=== PATIENT | male | born 1985 | race Caucasian/White ===

== ENCOUNTER 2018-10-05 20:08 | Inpatient (IN) | payer MEDICAID ==
[~2018-10-05] VITALS: Ht 188 cm; Wt 212.7 kg
--- NOTE | 2018-10-05 11:55 | NUR ---
NURSE NOTES: Patient is transferred from ED via gurney and received report from HOLLY Arredondo. Put desk monitor on. Inventory check done. Patient is alert and oriented x4. Vital signs taken. O2Sat 95% on room air. Patient is able to walk with steady gait. Patient denies any pain/discomfort at this time. Call light placed in easy reach. Will continue plan of care. Addendum: 10/06/18 at 0032 by SANIA GARCIA RN Entry Time-->[id number]
[2018-10-05 20:08] VITALS: BP 118/63
--- NOTE | 2018-10-05 20:08 | NUR ---
ED Nurse Note: Pt was BIBA from home, c/o SOB and left leg pain 10/15. Pt is A/O X4, C/O nausea. HR 149 , Temp 102.1 F at this time, waiting for orders.
--- NOTE | 2018-10-05 20:28 | NUR ---
ED Nurse Note: Shaina collected and sent to Lab.
[2018-10-05] MEDS ORDERED: Cefepime HCl 2 GM in NS 110 ML IV SCH (20:30)
[2018-10-05] MEDS ORDERED: Vancomycin 1.5 GM in NS 275 ML IVPB ONE (20:30)
--- NOTE | 2018-10-05 20:40 | NUR ---
ED Nurse Note: Blood c/s and urine collected and sent to Lab.
--- NOTE | 2018-10-05 20:52 | NUR ---
ED Nurse Note: Vanco and NS given as ordered.
[2018-10-05 20:59] LABS: ANION GAP 11 mmol/L (5-15); BLOOD UREA NITROGEN 14 mg/dL (7-18); CALCIUM 9.4 MG/DL (8.5-10.1); CARBON DIOXIDE 26 MMOL/L (21-32); CHLORIDE 99 MMOL/L (98-107); CREATININE 1.4 MG/DL (0.55-1.30); SODIUM 136 MMOL/L (136-145)
[2018-10-05 21:12] LABS: ALANINE AMINOTRANSFERASE 49 U/L (12-78); ALBUMIN 3.6 G/DL (3.4-5.0); ALBUMIN/GLOBULIN RATIO 0.8 (1.0-2.7); ALKALINE PHOSPHATASE 76 U/L (46-116); ASPARTATE AMINO TRANSFERASE 23 U/L (15-37); BILIRUBIN,TOTAL 0.4 MG/DL (0.2-1.0); CKMB < 0.5 NG/ML (0.0-3.6); CREATINE KINASE 67 U/L (26-308); PHOSPHORUS 1.3 MG/DL (2.5-4.9)
--- NOTE | 2018-10-05 21:21 | Emergency Room Report ---
History of Present Illness General Chief Complaint: Dyspnea/Respdistress Source: Patient Present Illness HPI Patient is a 33-year-old male who presented after increased difficulty breathing and left lower extremity discomfort. Patient had noticed increased swelling and discomfort to his left leg. He had recently had a small lesion to his lower extremity which he had scratched and subsequently became red hot and swollen. He had gradual onset of symptoms of approximately 1 week. He reports having fever and chills. He also reports having some increased difficulty with breathing. He had increased nonproductive cough. He denies any prior past medical history other than prior infection to his right lower extremity. Allergies: Coded Allergies: No Known Allergies (Unverified , 10/05/18) Patient History Past Medical History: see triage record Reviewed Nursing Documentation: PMH: Agreed; PSxH: Agreed Nursing Documentation-PM Past Medical History: No Stated History Review of Systems All Other Systems: negative except mentioned in HPI Physical Exam Vital Signs Date Time Temp Pulse Resp B/P (MAP) Pulse Ox O2 Delivery O2 Flow Rate FiO2 10/05/18 19:56 99.1 140 22 123/64 (83) 98 Room Air Sp02 EP Interpretation: reviewed, normal General Appearance: normal inspection, alert, GCS 15, non-toxic, obese, Chronically Ill Head: atraumatic ENT: normal ENT inspection, hearing grossly normal, normal voice Neck: normal inspection, full range of motion, supple, no bony tend Respiratory: normal inspection, lungs clear, normal breath sounds, no respiratory distress, no retraction, no wheezing Cardiovascular #1: tachycardia, edema - left leg Gastrointestinal: normal inspection, normal bowel sounds, non tender, soft, no guarding, no hernia Genitourinary: no CVA tenderness Musculoskeletal: normal inspection, back normal, normal range of motion Neurologic: normal inspection, alert, oriented x3, responsive, chain carrier III-XII nml as tested, motor strength/tone normal, speech normal Psychiatric: normal inspection, judgement/insight normal, mood/affect normal Skin: other - left leg erythema and swelling anteriorly Medical Decision Making Diagnostic Impression: Primary Impression: Cellulitis, leg Additional Impressions: Morbid obesity Tachycardia Severe sepsis ER Course Patient presented for fever and shortness of breath. Differential diagnosis include was not limited to sepsis, pneumonia, among others. Because of complexity of patient's case laboratory testing and imaging studies were ordered. Patient was noted to have initial tachycardia with a heart rate approximately 140. He appeared to be somewhat short of breath. He was started on IV fluids. Patient was noted to have normal initial oxygen saturation. Left lower extremity appear to be warm and erythematous. Patient did have some concern for sepsis. Lactic acid level was noted to be negative. Patient's initial laboratory testing was hemolyzed. Patient was started on IV antibiotics as well as IV fluids with some improvement in his tachycardia. He was also given IV Zofran. Chest x-ray one view interpreted by me showed normal cardiac size without evident infiltrate or pulmonary edema or effusion.Dr. Stephon Rainey was contacted for inpatient management Labs Test 10/05/18 20:27 10/05/18 20:40 Sodium Level 136 MMOL/L (136-145) Potassium Level 4.0 MMOL/L (3.5-5.1) Chloride Level 99 MMOL/L (98-107) Carbon Dioxide Level 26 MMOL/L (21-32) Anion Gap 11 mmol/L (5-15) Blood Urea Nitrogen 14 mg/dL (7-18) Creatinine 1.4 MG/DL (0.55-1.30) Estimat Glomerular Filtration Rate 58.4 mL/min (>60) Glucose Level 125 MG/DL (74-106) Calcium Level 9.4 MG/DL (8.5-10.1) Phosphorus Level 1.3 MG/DL (2.5-4.9) Magnesium Level 1.5 MG/DL (1.8-2.4) Total Bilirubin 0.4 MG/DL (0.2-1.0) Aspartate Amino Transf (AST/SGOT) 23 U/L (15-37) Alanine Aminotransferase (ALT/SGPT) 49 U/L (12-78) Alkaline Phosphatase 76 U/L (46-116) Total Creatine Kinase 67 U/L (26-308) Creatine Kinase MB < 0.5 NG/ML (0.0-3.6) Creatine Kinase MB Relative Index 0.7 Troponin I 0.000 ng/mL (0.000-0.056) Total Protein 8.1 G/DL (6.4-8.2) Albumin 3.6 G/DL (3.4-5.0) Globulin 4.5 g/dL Albumin/Globulin Ratio 0.8 (1.0-2.7) EKG Diagnostic Results Rate: tachycardiac - 137 Rhythm: NSR ST Segments: no acute changes Last Vital Signs Date Time Temp Pulse Resp B/P (MAP) Pulse Ox O2 Delivery O2 Flow Rate FiO2 10/05/18 19:56 99.1 140 22 123/64 (83) 98 Room Air Status: unchanged Disposition: ADMITTED INPATIENT Condition: Stable Referrals: NOT CHOSEN IPA/,REFERRING (PCP) Luis Miguel Gómez MD Oct 05, 2018 21:21
[2018-10-05] MEDS ORDERED: Acetaminophen 500mg (ES) tab ORAL ONE (22:15)
--- NOTE | 2018-10-05 22:15 | NUR ---
ED Nurse Note: Tone given as ordered.
[2018-10-05 22:22] LABS: HEMATOCRIT 43.6 % (42.0-52.0); HEMOGLOBIN 14.4 G/DL (14.2-18.0); MEAN CORPUSCULAR VOLUME 87 FL (80-99); PLATELET COUNT 452 K/UL (150-450); RED BLOOD COUNT 5.01 M/UL (4.70-6.10); WHITE BLOOD COUNT 18.7 K/UL (4.8-10.8)
[2018-10-05 22:23] LABS: BASOPHILS % (AUTO) 0.6 % (0.0-2.0); EOSINOPHILS % (AUTO) 1.1 % (0.0-3.0); LYMPHOCYTES % (AUTO) 7.2 % (20.0-45.0); MONOCYTES % (AUTO) 4.4 % (1.0-10.0); NEUTROPHILS % (AUTO) 86.8 % (45.0-75.0)
[2018-10-05 23:17] LABS: APPEARANCE,URINE CLOUDY; BILIRUBIN, URINE NEGATIVE (NEGATIVE); GLUCOSE, URINE (UA) NEGATIVE (NEGATIVE); KETONES,URINE 2+ (NEGATIVE); LEUKOCYTE ESTERASE ,URINE 1+ (NEGATIVE); NITRITE,URINE NEGATIVE (NEGATIVE); PH,URINE 5 (4.5-8.0); PROTEIN,URINE 3+ (NEGATIVE); UROBILINOGEN,URINE 4 MG/DL (0.0-1.0)
[2018-10-05 23:18] LABS: COLOR,URINE ORANGE
--- NOTE | 2018-10-05 23:50 | NUR ---
TRANSFER TO FLOOR: Patient transferred to [facility] as ordered. Report given to Skye/HOLLY. Belongings sent with Pt and rechecked with RN. Pt is A/O X 4.
--- NOTE | 2018-10-05 23:55 | NUR ---
NURSE NOTES: Patient is transferred from ED via gurney and received report from HOLLY Arredondo. Put gasoline attendant on. Inventory check done. Patient is alert and oriented x4. Vital signs taken. O2Sat 95% on room air. Patient is able to walk with steady gait. Patient denies any pain/discomfort at this time. Call light placed in easy reach. Will continue plan of care.
[2018-10-06] VITALS: BP 94/44
--- NOTE | 2018-10-06 00:11 | NUR ---
NURSE NOTES: Received admission orders from Dr. Rainey.
[2018-10-06] MEDS ORDERED: Phospha 250 Neutral tab ORAL ONE (00:15)
[2018-10-06] MEDS: Piperacillin/Tazobactam 3.375 GM in NS 110 ML IVPB SCH ×2 (00:45→05:15)
[2018-10-06] MEDS: HYDROcodone/Acetamin 10/325 tab ORAL PRN ×4 (02:19→20:25)
[2018-10-06 04:00] VITALS: BP 92/65
[2018-10-06] MEDS: Vancomycin 275 ML IVPB SCH ×3 (04:30→20:13)
[2018-10-06 07:06] LABS: HEMATOCRIT 43.8 % (42.0-52.0); HEMOGLOBIN 14.2 G/DL (14.2-18.0); MEAN CORPUSCULAR VOLUME 89 FL (80-99); PLATELET COUNT 399 K/UL (150-450); RED BLOOD COUNT 4.92 M/UL (4.70-6.10); RED CELL DISTRIBUTION WIDTH 13.7 % (11.6-14.8); WHITE BLOOD COUNT 19.6 K/UL (4.8-10.8)
[2018-10-06 07:08] LABS: ALANINE AMINOTRANSFERASE 42 U/L (12-78); ALBUMIN 3.2 G/DL (3.4-5.0); ALBUMIN/GLOBULIN RATIO 0.8 (1.0-2.7); ALKALINE PHOSPHATASE 61 U/L (46-116); ANION GAP 10 mmol/L (5-15); ASPARTATE AMINO TRANSFERASE 21 U/L (15-37); BILIRUBIN,TOTAL 0.6 MG/DL (0.2-1.0); BLOOD UREA NITROGEN 16 mg/dL (7-18); CALCIUM 8.8 MG/DL (8.5-10.1); CARBON DIOXIDE 25 MMOL/L (21-32); CHLORIDE 101 MMOL/L (98-107); CREATININE 1.4 MG/DL (0.55-1.30); POTASSIUM 3.7 MMOL/L (3.5-5.1); SODIUM 136 MMOL/L (136-145)
--- NOTE | 2018-10-06 07:20 | NUR ---
NURSE NOTES: RECEIVED PT RESTING IN BED COMFORTABLY,HOB ELEVATED 45 DEGRE.PT DENIES CP OR SOB AT THIS TIME.PT WITH LT LOWER LEG CELLULITIS ,REDNESS AND WARM TO TOUCH,ENCOURAGE PT TO KEEP ELEVATE LT LOWER LEG TO PROMOTE CIRCULATION AND DECREASE SWELLING.PT COMPLIANT WITH INSTRUCTIONS.PT RECEIVING NS @ 100CC/HRS CONNECTED ON LT AC G# 20.IV SITE INTACT. WILL CONT TO MONITOR.
--- NOTE | 2018-10-06 07:29 | NUR ---
HAND-OFF: Report given to HOLLY Ingram. Endorsed plan of care.
[2018-10-06 08:00] VITALS: BP 100/65
[2018-10-06] MEDS: Guaifenesin/DM 10ml syrup ORAL PRN ×2 (09:26→20:24)
[2018-10-06] MEDS: Heparin 5000 units/ml inj SUBQ SCH ×2 (09:31→21:08)
--- NOTE | 2018-10-06 11:28 | Diagnostic Imaging Report ---
Indication: Shortness of breath Technique: One view of the chest Comparison: none Findings: Body habitus limits evaluation. Lungs and pleural spaces are clear. Normal heart size. Calcified granuloma projects in the right upper lobe Impression: Evidence old granulomatous disease No acute process
[2018-10-06 12:00] VITALS: BP 96/60
[2018-10-06] MEDS ORDERED: cefTRIAXone 1 GM in D5W 55 ML IVPB SCH (14:00)
[2018-10-06 16:00] VITALS: BP 115/64
--- NOTE | 2018-10-06 17:00 | History and Physical Report ---
DATE OF ADMISSION: 10/05/2018 CHIEF COMPLAINT: Left leg cellulitis. HISTORY OF PRESENT ILLNESS: The patient is a 33-year-old male. He has a prior history of recurrent cellulitis and obesity, presents with complaints of cough, congestion, and left leg pain. According to the patient, he had URI symptoms approximately a week ago. On the day of admission, he noted that his left leg was red, painful, warm and swollen. He presented to the emergency room where he was noted to be febrile. He was diagnosed with cellulitis of the lower extremity. He is started on antibiotics. He is now admitted for further evaluation and care. PAST MEDICAL HISTORY: As above. PAST SURGICAL HISTORY: None. CURRENT MEDICATIONS: Reconciled and reviewed. ALLERGIES: None. FAMILY HISTORY: None. SOCIAL HISTORY: Negative. The patient drinks socially. No tobacco. No drugs. PHYSICAL EXAMINATION: VITAL SIGNS: Temperature 102, pulse 148, respirations 22, and blood pressure 92/65. GENERAL: The patient is a well-developed male, in no apparent distress. HEART: Regular rate and rhythm. LUNGS: Lungs are clear. ABDOMEN: Soft. EXTREMITIES: The left leg is swollen, edematous, and warm. The toes are slightly cool to touch. There is erythema over the minaya and around the entire leg below the knee. There is a scab on the left outer leg. LABORATORY DATA: White count 18,000, hemoglobin 14, hematocrit 43, and platelet count 452. Sodium 136, potassium 3.7, chloride 101, bicarb 25, BUN 16, and creatinine 1.4. ASSESSMENT: This is a 33-year-old male with a history of obesity, admitted with complaints of cellulitis and bronchitis. PROBLEM LIST: 1. Cellulitis. 2. Sepsis. 3. Obesity. PLAN: 1. IV antibiotics. 2. Follow up cultures. 3. CT scan of the leg. 4. Check arterial duplex. 5. Follow up pending cultures. 6. ID consultation. Stephon Rainey M.D. DR: CASSIE JOB#: [id number] CC:
--- NOTE | 2018-10-06 17:11 | NUR ---
Social Service Note Spoke with Dr. Rainey and obtaining medical records from 12 years ago from [facility] is not necessary.
--- NOTE | 2018-10-06 17:12 | NUR ---
CASE MANAGEMENT: INITIAL REVIEW 33 YO M BIBA HOME CC: DYSPNEA PMHX: DENIES SI:SEVERE SEPSIS. MORBID OBESITY. CELLULITIS ON LEG. T 99.1 HR 140 RR 22 B/P 123/64 SATS 98% ON RA WBC 18.4 CR 1.4 GLU 125 PHOS 1.3 MG 1.5 ABGs PH 7.499 PCO2 28.6 HCO3 21.8 IS: VANCO IV X1 NS BOLUS X1 CEFEPIME IV X1 FLAGYL IV X1 PATIENT ADMITTED TO SDU 10/05/2018 @ 2115 DCP: PATIENT TO BE DISCHARGED TO HOME ONCE MEDICALLY CLEARED. PLAN OF CARE: 1. IV antibiotics. 2. Follow up cultures. 3. CT scan of the leg. 4. Check arterial duplex. 10/06/2018 SI:SEVERE SEPSIS. MORBID OBESITY. CELLULITIS ON LEG. T 99.6 HR 112 RR 23 B/P 100/65 SATS 94% ON RA CR 1.4 GLU 114 IS: IVF @ 100 mL/HR CEFTRIAXONE IV Q24H VANCO IV Q8H SDU DCP: PATIENT TO BE DISCHARGED TO HOME ONCE MEDICALLY CLEARED. PLAN OF CARE: 1. IV antibiotics. 2. Follow up cultures. 3. CT scan of the leg. 4. Check arterial duplex. Addendum: 10/06/18 at 1723 by Mónica Kelly CM INTERQUAL
--- NOTE | 2018-10-06 19:20 | NUR ---
HAND-OFF: Report given to .GONZALEZ BARRERA.
--- NOTE | 2018-10-06 19:30 | NUR ---
NURSE NOTES: Pt is resting on the bed and awake and alert. No Sign of acute distress noted. Noted cellulitis on Lt. leg with redness and swelling. IV site intact and no sign of infiltration noted. Placed fall precaution. Will continue to care plan.
[2018-10-06 20:00] VITALS: BP 141/79
--- NOTE | 2018-10-06 20:45 | Consultation ---
DATE OF CONSULTATION: 10/06/2018 INFECTIOUS DISEASE CONSULT CONSULTING PHYSICIAN: Ezio Rico M.D. PRIMARY ATTENDING: Stephon Rainey M.D. This consult is for coverage of Dr. Plata. REASON FOR CONSULT: Sepsis, left leg cellulitis. HISTORY OF PRESENT ILLNESS: This is a 33-year-old white male admitted yesterday from home complaining of shortness of breath, edema, erythema, pain in left leg. Had also nonproductive cough. In hospital, the patient was found to have lactic acidosis, leukocytosis, tachycardia with heart rate of 148, fever with temperature of 102.1. The patient states that he is not feeling well for 7 days. First, he got a cold and sore throat, was in bed for a couple of days, and started having pain, erythema, and swelling in the left leg. Pain is increased with walking. PAST MEDICAL HISTORY: Morbid obesity. Has history of cellulitis in the left lower extremity 10 years ago. Has history of cellulitis in right lower extremity 4 months ago. ALLERGIES: No known drug allergies. MEDICATIONS: Heparin, Robitussin, dextromethorphan, vancomycin, sodium chloride, [place], Zosyn. SOCIAL HISTORY: Single. Smokes cigar occasionally. Smokes marijuana once in a month , drinks alcohol 2 to 3 times in a week. REVIEW OF SYSTEMS: Fever and nonproductive cough. No chest pain. No nausea. No vomiting. No problem passing urine. Pain in the left leg with walking. PHYSICAL EXAMINATION: VITAL SIGNS: T-max 102.1, temperature 99.2, pulse 101, blood pressure 96/60. GENERAL APPEARANCE: Seems morbidly obese, in no acute distress. HEAD AND NECK: [place] conjunctivae. HEART: Normal rate. LUNGS: Clear. ABDOMEN: Obese, soft. EXTREMITIES: Has erythema, swelling, tenderness in the left lower extremity below-knee. There are few scabs. There is no discharge. NEUROLOGIC: Awake, alert, oriented x3. LABORATORY AND DIAGNOSTIC DATA: Sodium 136, potassium 3.7, chloride 101, bicarbonate 25, BUN 16, creatinine 1.4, glucose 114. Lactic acid 2.1 that came down to 1.6. WBC 19.6, hemoglobin 14.2, hematocrit 43.8, platelets 399. Blood gas showed pCO2 of 28.6, pO2 of 76.1. Chest x-ray showed no acute process, old ground-glass opacity in the right upper lobe. IMPRESSION: Sepsis with fever, leukocytosis, tachycardia. The patient has cellulitis of left lower extremity. Has morbid obesity. Has acidosis. Has renal failure. RECOMMENDATION: Continue IV vancomycin. May discontinue Zosyn and start on ceftriaxone. We will follow up the cultures. At the end of my exam, I thank Dr. Rainey for involving me in the care of this patient. Ezio Rico M.D. DR: NABOR JOB#: [id number] CC: NARENDRA
[2018-10-07] MEDS: HYDROcodone/Acetamin 10/325 tab ORAL PRN ×3 (01:48→23:44)
[2018-10-07 04:00] VITALS: BP 105/69
[2018-10-07] MEDS: Guaifenesin/DM 10ml syrup ORAL PRN ×2 (04:27→08:07)
[2018-10-07] MEDS: Vancomycin 275 ML IVPB SCH ×4 (04:30→21:08)
[2018-10-07 04:35] LABS: HEMOGLOBIN 14.4 G/DL (14.2-18.0); MEAN CORPUSCULAR VOLUME 90 FL (80-99); PLATELET COUNT 389 K/UL (150-450); RED BLOOD COUNT 5.02 M/UL (4.70-6.10); RED CELL DISTRIBUTION WIDTH 13.9 % (11.6-14.8); WHITE BLOOD COUNT 21.9 K/UL (4.8-10.8)
[2018-10-07 06:16] LABS: ALANINE AMINOTRANSFERASE 42 U/L (12-78); ALBUMIN 2.8 G/DL (3.4-5.0); ALBUMIN/GLOBULIN RATIO 0.5 (1.0-2.7); ALKALINE PHOSPHATASE 65 U/L (46-116); ANION GAP 8 mmol/L (5-15); ASPARTATE AMINO TRANSFERASE 19 U/L (15-37); BILIRUBIN,TOTAL 0.3 MG/DL (0.2-1.0); BLOOD UREA NITROGEN 8 mg/dL (7-18); CALCIUM 9.1 MG/DL (8.5-10.1); CARBON DIOXIDE 28 MMOL/L (21-32); CHLORIDE 102 MMOL/L (98-107); POTASSIUM 4.3 MMOL/L (3.5-5.1); SODIUM 138 MMOL/L (136-145)
--- NOTE | 2018-10-07 07:15 | NUR ---
NURSE NOTES: RECEIVED BED SIDE REPORT FROM GONZALEZ BARRERA OF [facility] SHIFT STAFF.PT AWAKE AND ALERT ORIENTED X4,DENIES CO OR SOB AT THIS TIME.PT CELLULITIS ON LT LOWER LEG SEEMS RED,SWELLING AND WAR TO TOUCH ,ELEVATED WITH TWO PILLOWS.PT RECEIVING IVF,S NS @ 100CC/HRS INFUSSING WELL CONNECTED TO H.L G# 20.NO ACUTE DISTRESS NOTED AT THIS TIME .WILL CONT TO MONITOR.
[2018-10-07 08:00] VITALS: BP 122/84
[2018-10-07] MEDS: Heparin 5000 units/ml inj SUBQ SCH ×2 (08:10→21:10)
--- NOTE | 2018-10-07 10:20 | NUR ---
NURSE NOTES: DR TERRAZAS CAME TO SEE THE PT AND MADE AWARE AND NOTIFIED REGARDING PT HAD FEVER 101.8 ORALLY THIS A.M AND MEDICATED WITH TYLENOL 650MG P.O FEVER. NO NEW ORDERS NOTED AT THIS TIME. WILL CONT TO MONITOR.
--- NOTE | 2018-10-07 11:00 | NUR ---
NURSE NOTES: RE-ASSESSED TEMP 99.7.PT C/O,S OF FEELING NAUSEA ,MEDICATED WITH ZOFRAN 4MG IVP PER M.D ORDERS. WILL CONT TO MONITOR.
--- NOTE | 2018-10-07 11:24 | Infectious Diseases Prog Note ---
Assessment/Plan Assessment/Plan antibiotics ; vancomycin iv, ceftriaxone A 1. left leg cellulitis 2. leucocytosis increased 3. obesity P 1. continue iv vancomycin 2. d/c ceftriaxone 3. start zosyn 4. will follow up cultures Subjective Constitutional: Denies: fever, chills Respiratory: Reports: productive cough - decreasing; Denies: shortness of breath Gastrointestinal/Abdominal: Reports: nausea; Denies: vomiting, diarrhea Musculoskeletal: Reports: pain Allergies: Coded Allergies: No Known Allergies (Unverified , 10/05/18) Objective Vital Signs Last 24 Hour Vital Signs Date Time Temp Pulse Resp B/P (MAP) Pulse Ox O2 Delivery O2 Flow Rate FiO2 10/07/18 08:38 99.7 10/07/18 08:00 Room Air 10/07/18 08:00 101.8 115 22 122/84 (97) 94 10/07/18 08:00 112 10/07/18 04:00 98.8 102 20 105/69 (81) 100 10/07/18 04:00 Room Air 10/07/18 04:00 102 10/07/18 00:00 89 10/07/18 00:00 Room Air 10/06/18 20:00 97.7 92 20 141/79 (99) 100 10/06/18 20:00 Room Air 10/06/18 20:00 86 10/06/18 18:00 99 10/06/18 16:00 Room Air 10/06/18 16:00 99.0 96 22 115/64 (81) 95 10/06/18 15:25 99.2 10/06/18 12:00 106 10/06/18 12:00 99.2 101 21 96/60 (72) 99 10/06/18 12:00 Room Air Height (Feet): 6 Height (Inches): 2.00 Weight (Pounds): 470 Respiratory/Chest: lungs clear Cardiovascular: normal rate, regular rhythm, no gallop/murmur Abdomen: soft, non tender Extremities: other - + edema, left leg erythema Microbiology Date/Time Source Procedure Growth Status 10/05/18 20:46 Blood Blood Culture - Preliminary NO GROWTH AFTER 24 HOURS Resulted 10/05/18 20:40 Blood Blood Culture - Preliminary NO GROWTH AFTER 24 HOURS Resulted 10/05/18 23:05 Urine,Clean Catch Urine Culture - Preliminary Mixed Gram Positive Organism Resulted Laboratory Tests Test 10/07/18 04:09 White Blood Count 21.9 K/UL (4.8-10.8) H Red Blood Count 5.02 M/UL (4.70-6.10) Hemoglobin 14.4 G/DL (14.2-18.0) Hematocrit 45.0 % (42.0-52.0) Mean Corpuscular Volume 90 FL (80-99) Mean Corpuscular Hemoglobin 28.8 PG (27.0-31.0) Mean Corpuscular Hemoglobin Concent 32.1 G/DL (32.0-36.0) Red Cell Distribution Width 13.9 % (11.6-14.8) Platelet Count 389 K/UL (150-450) Mean Platelet Volume 6.4 FL (6.5-10.1) L Neutrophils (%) (Auto) % (45.0-75.0) Lymphocytes (%) (Auto) % (20.0-45.0) Monocytes (%) (Auto) % (1.0-10.0) Eosinophils (%) (Auto) % (0.0-3.0) Basophils (%) (Auto) % (0.0-2.0) Differential Total Cells Counted 100 Neutrophils % (Manual) 81 % (45-75) H Lymphocytes % (Manual) 9 % (20-45) L Monocytes % (Manual) 6 % (1-10) Eosinophils % (Manual) 3 % (0-3) Basophils % (Manual) 1 % (0-2) Band Neutrophils 0 % (0-8) Platelet Estimate Adequate Platelet Morphology Normal Red Blood Cell Morphology Normal Sodium Level 138 MMOL/L (136-145) Potassium Level 4.3 MMOL/L (3.5-5.1) Chloride Level 102 MMOL/L (98-107) Carbon Dioxide Level 28 MMOL/L (21-32) Anion Gap 8 mmol/L (5-15) Blood Urea Nitrogen 8 mg/dL (7-18) Creatinine 1.0 MG/DL (0.55-1.30) Estimat Glomerular Filtration Rate > 60 mL/min (>60) Glucose Level 107 MG/DL (74-106) H Lactic Acid Level 1.20 mmol/L (0.4-2.0) Calcium Level 9.1 MG/DL (8.5-10.1) Total Bilirubin 0.3 MG/DL (0.2-1.0) Aspartate Amino Transf (AST/SGOT) 19 U/L (15-37) Alanine Aminotransferase (ALT/SGPT) 42 U/L (12-78) Alkaline Phosphatase 65 U/L (46-116) Total Protein 8.1 G/DL (6.4-8.2) Albumin 2.8 G/DL (3.4-5.0) L Globulin 5.3 g/dL Albumin/Globulin Ratio 0.5 (1.0-2.7) L Vancomycin Level Trough 8.0 ug/mL (5.0-12.0) Current Medications Medications (Trade) Dose Ordered Sig/Jeffy Route PRN Reason Start Time Stop Time Status Last Admin Dose Admin Acetaminophen (Tylenol) 650 mg Q4H PRN ORAL Mild Pain/Temp > 100.5 10/05/18 22:30 11/04/18 22:29 10/07/18 08:08 Acetaminophen/ Hydrocodone Bitart ([place] 10/325) 1 tab Q4H PRN ORAL For Pain 10/05/18 22:30 10/12/18 22:29 10/07/18 01:48 Ceftriaxone Sodium 1 gm/ Dextrose 55 ml @ 110 mls/hr Q24H IVPB 10/06/18 14:00 10/13/18 13:59 10/06/18 14:46 Guaifenesin/ Dextromethorphan (Robitussin DM Syrup) 10 ml Q4H PRN ORAL For Cough 10/06/18 08:15 11/05/18 08:14 10/07/18 08:07 Heparin Sodium (Porcine) (Heparin 5000 units/ml) 5,000 units EVERY 12 HOURS SUBQ 10/06/18 09:00 11/05/18 08:59 10/07/18 08:10 Ondansetron HCl (Zofran) 4 mg Q6H PRN IVP Nausea & Vomiting 10/05/18 22:30 11/04/18 22:29 10/07/18 10:53 Sodium Chloride 1,000 ml @ 100 mls/hr Q10H IV 10/05/18 22:30 11/04/18 22:29 10/07/18 05:36 Temazepam (Restoril) 30 mg HSPRN PRN ORAL Insomnia 10/06/18 21:29 10/13/18 21:28 10/06/18 21:34 Vancomycin HCl (Vanco rx to dose) 1 ea DAILY PRN MISC Per rx protocol 10/05/18 22:30 11/04/18 22:29 Vancomycin HCl/ Dextrose 275 ml @ 184 mls/hr Q8H IVPB 10/07/18 06:00 10/12/18 05:59 10/07/18 05:35 Bradford Plata MD Oct 07, 2018 11:24
[2018-10-07 12:00] VITALS: BP 121/56
[2018-10-07] MEDS: Piperacillin/Tazobactam 4.5 GM in NS 110 ML IVPB SCH ×2 (15:05→21:09)
--- NOTE | 2018-10-07 15:05 | General Progress Note ---
Assessment/Plan Problem List: (1) Morbid obesity ICD Codes: E66.01 - Morbid (severe) obesity due to excess calories SNOMED: 575913128 (2) Tachycardia ICD Codes: R00.0 - Tachycardia, unspecified; R65.20 - Severe sepsis without septic shock SNOMED: 1873521 (3) Cellulitis, leg ICD Codes: L03.119 - Cellulitis of unspecified part of limb SNOMED: 523371987 (4) Severe sepsis ICD Codes: A41.9 - Sepsis, unspecified organism; R65.20 - Severe sepsis without septic shock SNOMED: 82377102 Status: stable Assessment/Plan: iv abx follow up cultures arterial and venous duplex added doxy per pt request(respond well in the past) Subjective ROS Limited/Unobtainable: No Constitutional: Reports: fever, malaise, weakness HEENT: Reports: no symptoms Cardiovascular: Reports: no symptoms Respiratory: Reports: no symptoms Gastrointestinal/Abdominal: Reports: no symptoms Genitourinary: Reports: no symptoms Neurologic/Psychiatric: Reports: no symptoms Endocrine: Reports: no symptoms Allergies: Coded Allergies: No Known Allergies (Unverified , 10/05/18) All Systems: reviewed and negative except above Subjective does feel any better. could not fit into CT scanner due to wt. Objective Last 24 Hour Vital Signs Date Time Temp Pulse Resp B/P (MAP) Pulse Ox O2 Delivery O2 Flow Rate FiO2 10/07/18 13:00 99.7 10/07/18 12:00 Room Air 10/07/18 12:00 112 10/07/18 12:00 98.2 92 21 121/56 (77) 94 10/07/18 08:38 99.7 10/07/18 08:00 Room Air 10/07/18 08:00 101.8 115 22 122/84 (97) 94 10/07/18 08:00 112 10/07/18 04:00 98.8 102 20 105/69 (81) 100 10/07/18 04:00 Room Air 10/07/18 04:00 102 10/07/18 00:00 89 10/07/18 00:00 Room Air 10/06/18 20:00 97.7 92 20 141/79 (99) 100 10/06/18 20:00 Room Air 10/06/18 20:00 86 10/06/18 18:00 99 10/06/18 16:00 Room Air 10/06/18 16:00 99.0 96 22 115/64 (81) 95 Intake and Output 10/06/18 10/07/18 19:00 07:00 Intake Total 1823 ml 1999 ml Output Total 400 ml 900 ml Balance 1423 ml 1099 ml Intake Oral 400 ml 400 ml IV Total 1423 ml 1599 ml Output Urine Total 400 ml 900 ml Laboratory Tests 10/07/18 04:09: White Blood Count 21.9H, Red Blood Count 5.02, Hemoglobin 14.4, Hematocrit 45.0 , Mean Corpuscular Volume 90, Mean Corpuscular Hemoglobin 28.8, Mean Corpuscular Hemoglobin Concent 32.1, Red Cell Distribution Width 13.9, Platelet Count 389, Mean Platelet Volume 6.4L, Neutrophils (%) (Auto) , Lymphocytes (%) ( Auto) , Monocytes (%) (Auto) , Eosinophils (%) (Auto) , Basophils (%) (Auto) , Differential Total Cells Counted 100, Neutrophils % (Manual) 81H, Lymphocytes % (Manual) 9L, Monocytes % (Manual) 6, Eosinophils % (Manual) 3, Basophils % ( Manual) 1, Band Neutrophils 0, Platelet Estimate Adequate, Platelet Morphology Normal, Red Blood Cell Morphology Normal, Sodium Level 138, Potassium Level 4.3 , Chloride Level 102, Carbon Dioxide Level 28, Anion Gap 8, Blood Urea Nitrogen 8, Creatinine 1.0, Estimat Glomerular Filtration Rate > 60, Glucose Level 107H, Lactic Acid Level 1.20, Calcium Level 9.1, Total Bilirubin 0.3, Aspartate Amino Transf (AST/SGOT) 19, Alanine Aminotransferase (ALT/SGPT) 42, Alkaline Phosphatase 65, Total Protein 8.1, Albumin 2.8L, Globulin 5.3, Albumin/Globulin Ratio 0.5L, Vancomycin Level Trough 8.0 Height (Feet): 6 Height (Inches): 2.00 Weight (Pounds): 470 General Appearance: WD/WN, alert Neck: supple Cardiovascular: regular rhythm Respiratory/Chest: normal breath sounds Abdomen: normal bowel sounds, non tender, soft, no organomegaly Edema: 3+ Leg (L), 3+ Leg (R) Skin: rash Stephon Rainey MD Oct 07, 2018 15:04
[2018-10-07 16:00] VITALS: BP 108/66
--- NOTE | 2018-10-07 16:32 | NUR ---
CASE MANAGEMENT:REVIEW 10/07/18 SI: SEVERE SEPSIS. LEG CELLULITIS. TACHYCARDIA. MORBID OBESITY 101.8 115 22 122/84 94% ON RA WBC+21.9 IS: IV ZOSYN Q8HRS IV VANCOMYCIN Q8HRS DOXYCYCLINE PO Q12 IVF@100/HR HEPARIN SQ Q12 : STEP DOWN UNIT DCP: FROM HOME
--- NOTE | 2018-10-07 19:15 | NUR ---
HAND-OFF: Report given to .SAMUEL BARRERA.
--- NOTE | 2018-10-07 19:20 | NUR ---
NURSE NOTES: Received patient from HOLLY AVILA. Patient is stable, all needs are met. Will continue plan of care.
[2018-10-07 20:01] VITALS: BP 140/78
[2018-10-07] MEDS: Promethazine/Codeine 5ml UD ORAL PRN (22:20)
[2018-10-08] VITALS: BP 117/73
[2018-10-08 04:00] VITALS: BP 140/78
[2018-10-08 04:59] LABS: BASOPHILS % (AUTO) 0.4 % (0.0-2.0); EOSINOPHILS % (AUTO) 1.3 % (0.0-3.0); HEMATOCRIT 42.9 % (42.0-52.0); HEMOGLOBIN 13.6 G/DL (14.2-18.0); LYMPHOCYTES % (AUTO) 14.6 % (20.0-45.0); MEAN CORPUSCULAR VOLUME 90 FL (80-99); MONOCYTES % (AUTO) 5.9 % (1.0-10.0); NEUTROPHILS % (AUTO) 77.8 % (45.0-75.0); PLATELET COUNT 383 K/UL (150-450); RED BLOOD COUNT 4.76 M/UL (4.70-6.10); RED CELL DISTRIBUTION WIDTH 14.1 % (11.6-14.8); WHITE BLOOD COUNT 15.6 K/UL (4.8-10.8)
[2018-10-08] MEDS: Vancomycin 275 ML IVPB SCH ×3 (05:17→21:19)
[2018-10-08] MEDS: Piperacillin/Tazobactam 4.5 GM in NS 110 ML IVPB SCH ×3 (05:18→22:56)
[2018-10-08 05:25] LABS: ALANINE AMINOTRANSFERASE 69 U/L (12-78); ALBUMIN 2.4 G/DL (3.4-5.0); ALBUMIN/GLOBULIN RATIO 0.5 (1.0-2.7); ALKALINE PHOSPHATASE 68 U/L (46-116); ANION GAP 8 mmol/L (5-15); ASPARTATE AMINO TRANSFERASE 42 U/L (15-37); BILIRUBIN,TOTAL 0.2 MG/DL (0.2-1.0); BLOOD UREA NITROGEN 8 mg/dL (7-18); CALCIUM 8.9 MG/DL (8.5-10.1); CARBON DIOXIDE 29 MMOL/L (21-32); CHLORIDE 105 MMOL/L (98-107); POTASSIUM 4.1 MMOL/L (3.5-5.1); SODIUM 142 MMOL/L (136-145)
--- NOTE | 2018-10-08 07:10 | NUR ---
NURSE NOTES: Patient has an order for CT of the lower extremities. Unable to perform procedure due to patient's weight. Dr. Rainey is aware.
--- NOTE | 2018-10-08 07:15 | NUR ---
HAND-OFF: Report given to HOLLY Yepez.
--- NOTE | 2018-10-08 07:16 | NUR ---
NURSE NOTES: Received patient in bed. Awake, alert, verbal, able to make needs known. On room air. Denies SOB. Call light within reach. Will continue plan of care.
[2018-10-08] MEDS: Promethazine/Codeine 5ml UD ORAL PRN (07:21)
[2018-10-08 08:00] VITALS: BP 117/62
--- NOTE | 2018-10-08 08:54 | General Progress Note ---
Assessment/Plan Problem List: (1) Morbid obesity ICD Codes: E66.01 - Morbid (severe) obesity due to excess calories SNOMED: 723903786 (2) Tachycardia ICD Codes: R00.0 - Tachycardia, unspecified; R65.20 - Severe sepsis without septic shock SNOMED: 4045160 (3) Cellulitis, leg ICD Codes: L03.119 - Cellulitis of unspecified part of limb SNOMED: 851445841 (4) Severe sepsis ICD Codes: A41.9 - Sepsis, unspecified organism; R65.20 - Severe sepsis without septic shock SNOMED: 18302807 Status: stable Assessment/Plan: iv abx follow up cultures Subjective ROS Limited/Unobtainable: No Constitutional: Reports: malaise, weakness HEENT: Reports: no symptoms Cardiovascular: Reports: no symptoms Respiratory: Reports: no symptoms Gastrointestinal/Abdominal: Reports: no symptoms Genitourinary: Reports: no symptoms Neurologic/Psychiatric: Reports: no symptoms Endocrine: Reports: no symptoms Hematologic/Lymphatic: Reports: no symptoms Allergies: Coded Allergies: No Known Allergies (Unverified , 10/05/18) All Systems: reviewed and negative except above Subjective better today. decreased pain and fever. Objective Last 24 Hour Vital Signs Date Time Temp Pulse Resp B/P (MAP) Pulse Ox O2 Delivery O2 Flow Rate FiO2 10/08/18 08:00 Room Air 10/08/18 04:00 98.2 94 20 140/78 (98) 98 10/08/18 04:00 Room Air 10/08/18 03:25 95 10/08/18 00:00 Room Air 10/08/18 00:00 98.2 97 20 117/73 (88) 100 10/07/18 23:27 99 10/07/18 20:01 97.3 90 20 140/78 (98) 96 10/07/18 20:00 Room Air 10/07/18 19:47 90 10/07/18 16:00 Room Air 10/07/18 16:00 96.6 93 23 108/66 (80) 93 10/07/18 16:00 87 10/07/18 13:00 99.7 10/07/18 12:00 Room Air 10/07/18 12:00 112 10/07/18 12:00 98.2 92 21 121/56 (77) 94 Intake and Output 10/07/18 10/08/18 19:00 07:00 Intake Total 2850.5 ml 2830.20 ml Output Total 850 ml 3150 ml Balance 2000.5 ml -319.80 ml Intake Oral 1200 ml 1000 ml IV Total 1650.5 ml 1830.20 ml Output Urine Total 850 ml 3150 ml # Voids 4 Laboratory Tests 10/08/18 04:10: White Blood Count 15.6H, Red Blood Count 4.76, Hemoglobin 13.6L, Hematocrit 42.9 , Mean Corpuscular Volume 90, Mean Corpuscular Hemoglobin 28.6, Mean Corpuscular Hemoglobin Concent 31.7L, Red Cell Distribution Width 14.1, Platelet Count 383, Mean Platelet Volume 6.6, Neutrophils (%) (Auto) 77.8H, Lymphocytes (%) (Auto) 14.6L, Monocytes (%) (Auto) 5.9, Eosinophils (%) (Auto) 1.3, Basophils (%) (Auto) 0.4, Sodium Level 142, Potassium Level 4.1, Chloride Level 105, Carbon Dioxide Level 29, Anion Gap 8, Blood Urea Nitrogen 8, Creatinine 1.0, Estimat Glomerular Filtration Rate > 60, Glucose Level 93, Calcium Level 8.9, Total Bilirubin 0.2, Aspartate Amino Transf (AST/SGOT) 42H, Alanine Aminotransferase (ALT/SGPT) 69, Alkaline Phosphatase 68, Total Protein 7.6, Albumin 2.4L, Globulin 5.2, Albumin/Globulin Ratio 0.5L Height (Feet): 6 Height (Inches): 2.00 Weight (Pounds): 470 Objective General Appearance: WD/WN, alert Neck: supple Cardiovascular: regular rhythm Respiratory/Chest: normal breath sounds Abdomen: normal bowel sounds, non tender, soft, no organomegaly Edema: 3+ Leg (L), 3+ Leg (R) Skin: rash Stephon Rainey MD Oct 08, 2018 08:54
[2018-10-08] MEDS: Heparin 5000 units/ml inj SUBQ SCH ×2 (09:37→21:20)
--- NOTE | 2018-10-08 11:05 | Infectious Diseases Prog Note ---
Assessment/Plan Assessment/Plan antibiotics ; vancomycin iv, zosyn, doxycycline A 1. left leg cellulitis 2. leucocytosis improving 3. obesity P 1. continue iv vancomycin, zosyn, doxycycline 2. start clindamycin 3. will follow up cultures Subjective Constitutional: Denies: fever, chills Respiratory: Reports: productive cough - decreased; Denies: shortness of breath Gastrointestinal/Abdominal: Reports: vomiting - yesterday; Denies: nausea, diarrhea Musculoskeletal: Reports: pain Allergies: Coded Allergies: No Known Allergies (Unverified , 10/05/18) Objective Vital Signs Last 24 Hour Vital Signs Date Time Temp Pulse Resp B/P (MAP) Pulse Ox O2 Delivery O2 Flow Rate FiO2 10/08/18 08:00 Room Air 10/08/18 08:00 99.5 92 18 117/62 (80) 95 10/08/18 07:34 97 10/08/18 04:00 98.2 94 20 140/78 (98) 98 10/08/18 04:00 Room Air 10/08/18 03:25 95 10/08/18 00:00 Room Air 10/08/18 00:00 98.2 97 20 117/73 (88) 100 10/07/18 23:27 99 10/07/18 20:01 97.3 90 20 140/78 (98) 96 10/07/18 20:00 Room Air 10/07/18 19:47 90 10/07/18 16:00 Room Air 10/07/18 16:00 96.6 93 23 108/66 (80) 93 10/07/18 16:00 87 10/07/18 13:00 99.7 10/07/18 12:00 Room Air 10/07/18 12:00 112 10/07/18 12:00 98.2 92 21 121/56 (77) 94 Height (Feet): 6 Height (Inches): 2.00 Weight (Pounds): 470 Respiratory/Chest: lungs clear Cardiovascular: normal rate, regular rhythm, no gallop/murmur Abdomen: soft, non tender Extremities: other - + edema, left leg erythema Microbiology Date/Time Source Procedure Growth Status 10/05/18 20:46 Blood Blood Culture - Preliminary NO GROWTH AFTER 48 HOURS Resulted 10/05/18 20:40 Blood Blood Culture - Preliminary NO GROWTH AFTER 48 HOURS Resulted 10/05/18 23:05 Urine,Clean Catch Urine Culture - Final Mixed Gram Positive Organism Complete Laboratory Tests Test 10/08/18 04:10 White Blood Count 15.6 K/UL (4.8-10.8) H Red Blood Count 4.76 M/UL (4.70-6.10) Hemoglobin 13.6 G/DL (14.2-18.0) L Hematocrit 42.9 % (42.0-52.0) Mean Corpuscular Volume 90 FL (80-99) Mean Corpuscular Hemoglobin 28.6 PG (27.0-31.0) Mean Corpuscular Hemoglobin Concent 31.7 G/DL (32.0-36.0) L Red Cell Distribution Width 14.1 % (11.6-14.8) Platelet Count 383 K/UL (150-450) Mean Platelet Volume 6.6 FL (6.5-10.1) Neutrophils (%) (Auto) 77.8 % (45.0-75.0) H Lymphocytes (%) (Auto) 14.6 % (20.0-45.0) L Monocytes (%) (Auto) 5.9 % (1.0-10.0) Eosinophils (%) (Auto) 1.3 % (0.0-3.0) Basophils (%) (Auto) 0.4 % (0.0-2.0) Sodium Level 142 MMOL/L (136-145) Potassium Level 4.1 MMOL/L (3.5-5.1) Chloride Level 105 MMOL/L (98-107) Carbon Dioxide Level 29 MMOL/L (21-32) Anion Gap 8 mmol/L (5-15) Blood Urea Nitrogen 8 mg/dL (7-18) Creatinine 1.0 MG/DL (0.55-1.30) Estimat Glomerular Filtration Rate > 60 mL/min (>60) Glucose Level 93 MG/DL (74-106) Calcium Level 8.9 MG/DL (8.5-10.1) Total Bilirubin 0.2 MG/DL (0.2-1.0) Aspartate Amino Transf (AST/SGOT) 42 U/L (15-37) H Alanine Aminotransferase (ALT/SGPT) 69 U/L (12-78) Alkaline Phosphatase 68 U/L (46-116) Total Protein 7.6 G/DL (6.4-8.2) Albumin 2.4 G/DL (3.4-5.0) L Globulin 5.2 g/dL Albumin/Globulin Ratio 0.5 (1.0-2.7) L Current Medications Medications (Trade) Dose Ordered Sig/Jeffy Route PRN Reason Start Time Stop Time Status Last Admin Dose Admin Acetaminophen (Tylenol) 650 mg Q4H PRN ORAL Mild Pain/Temp > 100.5 10/05/18 22:30 11/04/18 22:29 10/07/18 08:08 Acetaminophen/ Hydrocodone Bitart ([place] 10) 1 tab Q4H PRN ORAL For Pain 10/05/18 22:30 10/12/18 22:29 10/07/18 23:44 Doxycycline Monohydrate (Doxycycline Monohydrate) 100 mg EVERY 12 HOURS ORAL 10/07/18 15:04 10/14/18 15:03 10/08/18 09:35 Guaifenesin/ Dextromethorphan (Robitussin DM Syrup) 10 ml Q4H PRN ORAL For Cough 10/06/18 08:15 11/05/18 08:14 10/07/18 08:07 Heparin Sodium (Porcine) (Heparin 5000 units/ml) 5,000 units EVERY 12 HOURS SUBQ 10/06/18 09:00 11/05/18 08:59 10/08/18 09:37 Ondansetron HCl (Zofran) 4 mg Q6H PRN IVP Nausea & Vomiting 10/05/18 22:30 11/04/18 22:29 10/07/18 17:06 Piperacillin Sod/ Tazobactam Sod 4.5 gm/Sodium Chloride 110 ml @ 27.5 mls/hr EVERY 8 HOURS IVPB 10/07/18 14:00 10/12/18 13:59 10/08/18 05:18 Promethazine HCl/ Codeine (Phenergan with Codeine) 5 ml Q4H PRN ORAL For Cough 10/07/18 15:00 11/06/18 14:59 10/08/18 07:21 Sodium Chloride 1,000 ml @ 100 mls/hr Q10H IV 10/05/18 22:30 11/04/18 22:29 10/08/18 09:37 Temazepam (Restoril) 30 mg HSPRN PRN ORAL Insomnia 10/06/18 21:29 10/13/18 21:28 10/07/18 21:09 Vancomycin HCl (Vanco rx to dose) 1 ea DAILY PRN MISC Per rx protocol 10/05/18 22:30 11/04/18 22:29 Vancomycin HCl/ Dextrose 275 ml @ 184 mls/hr Q8H IVPB 10/07/18 06:00 10/12/18 05:59 10/08/18 05:17 Bradford Plata MD Oct 08, 2018 11:05
--- NOTE | 2018-10-08 11:24 | Diagnostic Imaging Report ---
APPROVED REPORT CPT Code: 10208 Symptoms Comments: Cellulitis Edema RIGHT LEG: Common femoral artery waveform analysis is within normal limits at rest. Color flow duplex sonography reveals patency of the superficial femoral, popliteal, and tibial arteries. There is no evidence of stenosis or occlusion within these segments. Doppler tibial artery waveform analysis is within normal limits. LEFT LEG: Common femoral artery waveform analysis is within normal limits at rest. Color flow duplex sonography reveals patency of the superficial femoral, popliteal, and tibial arteries. There is no evidence of stenosis or occlusion within these segments. Doppler tibial artery waveform analysis is within normal limits. NOTE: The Doppler flow in the left leg is vesodilated (due to severe edema). There is no evidence of significant arterial occlusive disease, bilaterally.
[2018-10-08 12:00] VITALS: BP 133/69
--- NOTE | 2018-10-08 13:02 | NUR ---
CASE MANAGEMENT:REVIEW 10/08/18 SI: SEPSIS. LEG CELLULITIS. OBESITY 97.9 94 22 133/69 98% ON RA WBC+15.6 IS: IV CLINDAMYCIN Q6HRS IV ZOSYN Q8HRS IV VANCOMYCIN Q8HRS IVF@100/HR DOXYCYCLINE PO Q12 : STEP DOWN UNIT DCP: FROM HOME PLAN: TRANSFER TO MED/SURG
[2018-10-08] MEDS: Clindamycin 900mg 50 ML IV SCH ×3 (13:10→23:33)
[2018-10-08] MEDS ORDERED: NS 275ml ONE (14:59)
[2018-10-08] MEDS ORDERED: Tubing IV Secondary IV ONE (14:59)
[2018-10-08 16:00] VITALS: BP 124/69
--- NOTE | 2018-10-08 19:09 | NUR ---
NURSE NOTES: Report received from HOLLY Yepez. Observed pt lying on the bed, denies any pain at this time. Family member at the bedside. A/O x4. SR with cardiac tech. On room air with no SOB. Abd round, soft, and non-tender. IV on L AC 20G, running NS at 100cc/hr. Bed in the lowest position. Side rails up x2. Call light within reach. Will continue to monitor.
--- NOTE | 2018-10-08 19:15 | NUR ---
HAND-OFF: Report given to HOLLY Partida.
[2018-10-08 20:00] VITALS: BP 142/60
--- NOTE | 2018-10-08 22:00 | NUR ---
NURSE NOTES: Notified regarding prn pain med and no new order received. Will continue to monitor.
[2018-10-08] MEDS: HYDROcodone/Acetamin 10/325 tab ORAL PRN (23:33)
[2018-10-09] VITALS: BP 133/75
--- NOTE | 2018-10-09 02:00 | NUR ---
NURSE NOTES: Observed pt sleeping in the bed. No acute distress noted at this time. SR with surveillance system monitor. Will continue to monitor.
[2018-10-09 04:00] VITALS: BP 141/79
[2018-10-09] MEDS: Vancomycin 275 ML IVPB SCH ×3 (05:06→23:17)
[2018-10-09] MEDS: Clindamycin 900mg 50 ML IV SCH ×3 (05:06→18:08)
[2018-10-09 05:15] LABS: BASOPHILS % (AUTO) 1.1 % (0.0-2.0); HEMATOCRIT 44.5 % (42.0-52.0); HEMOGLOBIN 13.5 G/DL (14.2-18.0); LYMPHOCYTES % (AUTO) 17.5 % (20.0-45.0); MEAN CORPUSCULAR VOLUME 94 FL (80-99); MONOCYTES % (AUTO) 4.4 % (1.0-10.0); NEUTROPHILS % (AUTO) 75.9 % (45.0-75.0); PLATELET COUNT 376 K/UL (150-450); RED BLOOD COUNT 4.74 M/UL (4.70-6.10); RED CELL DISTRIBUTION WIDTH 14.9 % (11.6-14.8); WHITE BLOOD COUNT 15.3 K/UL (4.8-10.8)
[2018-10-09 05:43] LABS: ALANINE AMINOTRANSFERASE 71 U/L (12-78); ALBUMIN 2.6 G/DL (3.4-5.0); ALBUMIN/GLOBULIN RATIO 0.5 (1.0-2.7); ALKALINE PHOSPHATASE 72 U/L (46-116); ANION GAP 15 mmol/L (5-15); ASPARTATE AMINO TRANSFERASE 50 U/L (15-37); BILIRUBIN,TOTAL 0.2 MG/DL (0.2-1.0); BLOOD UREA NITROGEN 8 mg/dL (7-18); CARBON DIOXIDE 25 MMOL/L (21-32); CHLORIDE 104 MMOL/L (98-107); CREATININE 1.1 MG/DL (0.55-1.30); POTASSIUM 4.4 MMOL/L (3.5-5.1); SODIUM 143 MMOL/L (136-145)
[2018-10-09] MEDS: Piperacillin/Tazobactam 4.5 GM in NS 110 ML IVPB SCH ×3 (06:26→21:15)
[2018-10-09] MEDS ORDERED: HYDROcodone/Acetamin 10/325 tab ORAL PRN ×2 (06:57→08:45)
[2018-10-09] MEDS ORDERED: Promethazine/Codeine 5ml UD ORAL PRN (07:00)
--- NOTE | 2018-10-09 07:07 | NUR ---
TRANSFER TO FLOOR: Patient transferred to 3E. Report given to HOLLY Santos. No acute distress noted at this time. Pt appears calm and comfortable. Report given to HOLLY Santos. Belonging checked with RN and med given to RN. Pt appears calm and comfortable. No acute distress noted at this time. quality assurance monitor chassis brought back to 2E.
--- NOTE | 2018-10-09 07:20 | NUR ---
NURSE NOTES: Report received from Danielle RN, rounds made. Patient sitting in semi-fowlers position in bed. Alert, oriented x4, calm. No distress on RA. Pain to LLE 2/10. IVF infusing to LAC, site asymptomatic. LLE redness, pitting +3, scabs noted, elevated. CMS to LLE warm, wiggles, no NT, hand grasps/pedal pushes 5/5. Call light in reach, bed in lowest position, will continue to monitor.
[2018-10-09 08:00] VITALS: BP 153/84
--- NOTE | 2018-10-09 08:46 | General Progress Note ---
Assessment/Plan Problem List: (1) Morbid obesity ICD Codes: E66.01 - Morbid (severe) obesity due to excess calories SNOMED: 460409354 (2) Tachycardia ICD Codes: R00.0 - Tachycardia, unspecified; R65.20 - Severe sepsis without septic shock SNOMED: 8948039 (3) Cellulitis, leg ICD Codes: L03.119 - Cellulitis of unspecified part of limb SNOMED: 231162599 (4) Severe sepsis ICD Codes: A41.9 - Sepsis, unspecified organism; R65.20 - Severe sepsis without septic shock SNOMED: 16781465 Status: stable Assessment/Plan: iv abx follow up cultures soft tissue us Subjective ROS Limited/Unobtainable: No Constitutional: Reports: malaise, weakness HEENT: Reports: no symptoms Cardiovascular: Reports: no symptoms Respiratory: Reports: no symptoms Gastrointestinal/Abdominal: Reports: no symptoms Genitourinary: Reports: no symptoms Neurologic/Psychiatric: Reports: no symptoms Endocrine: Reports: no symptoms Hematologic/Lymphatic: Reports: no symptoms Allergies: Coded Allergies: No Known Allergies (Unverified , 10/05/18) All Systems: reviewed and negative except above Subjective better today. decreased pain and fever. Objective Last 24 Hour Vital Signs Date Time Temp Pulse Resp B/P (MAP) Pulse Ox O2 Delivery O2 Flow Rate FiO2 10/09/18 04:00 98 10/09/18 04:00 Room Air 10/09/18 04:00 98.0 86 20 141/79 (99) 98 10/09/18 00:00 97 10/09/18 00:00 Room Air 10/09/18 00:00 97.9 96 16 133/75 (94) 97 10/08/18 20:00 97.7 99 16 142/60 (87) 98 10/08/18 20:00 Room Air 10/08/18 19:07 97 10/08/18 16:00 Room Air 10/08/18 16:00 98.4 98 22 124/69 (87) 95 10/08/18 15:21 99 10/08/18 12:00 Room Air 10/08/18 12:00 97.9 94 22 133/69 (90) 98 10/08/18 11:36 95 Intake and Output 10/08/18 10/09/18 18:59 06:59 Intake Total 3359.01 ml 1615.0 ml Output Total 2500 ml 2500 ml Balance 859.01 ml -885.0 ml Intake Oral 1800 ml 480 ml IV Total 1559.01 ml 1135.0 ml Output Urine Total 2500 ml 2500 ml # Voids 1 4 Laboratory Tests 10/09/18 04:30: White Blood Count 15.3H, Red Blood Count 4.74, Hemoglobin 13.5L, Hematocrit 44.5 , Mean Corpuscular Volume 94, Mean Corpuscular Hemoglobin 28.5, Mean Corpuscular Hemoglobin Concent 30.4L, Red Cell Distribution Width 14.9H, Platelet Count 376, Mean Platelet Volume 5.7L, Neutrophils (%) (Auto) 75.9H, Lymphocytes (%) (Auto) 17.5L, Monocytes (%) (Auto) 4.4, Eosinophils (%) (Auto) 1.0, Basophils (%) (Auto) 1.1, Sodium Level 143, Potassium Level 4.4, Chloride Level 104, Carbon Dioxide Level 25, Anion Gap 15, Blood Urea Nitrogen 8, Creatinine 1.1, Estimat Glomerular Filtration Rate > 60, Glucose Level 62L, Calcium Level 9.0, Total Bilirubin 0.2, Aspartate Amino Transf (AST/SGOT) 50H, Alanine Aminotransferase (ALT/SGPT) 71, Alkaline Phosphatase 72, Total Protein 7.5, Albumin 2.6L, Globulin 4.9, Albumin/Globulin Ratio 0.5L Height (Feet): 6 Height (Inches): 2.00 Weight (Pounds): 470 Objective General Appearance: WD/WN, alert Neck: supple Cardiovascular: regular rhythm Respiratory/Chest: normal breath sounds Abdomen: normal bowel sounds, non tender, soft, no organomegaly Edema: 3+ Leg (L), 3+ Leg (R) Skin: rash Stephon Rainey MD Oct 09, 2018 08:46
[2018-10-09] MEDS: Heparin 5000 units/ml inj SUBQ SCH ×2 (09:33→21:17)
--- NOTE | 2018-10-09 10:45 | NUR ---
NURSE NOTES: Dr. Rainey notified of Glucose 62 mg/dl on AM labs, no s/s of hypoglycemia, and patient has eaten breakfast, good appetite. Also that patient is requesting a stronger pain medication other than [place] 10 mg PRN, awaiting further orders.
--- NOTE | 2018-10-09 10:51 | Infectious Diseases Prog Note ---
Assessment/Plan Assessment/Plan antibiotics ; vancomycin iv, zosyn, doxycycline,clindamycin A 1. left leg cellulitis improving 2. leucocytosis improving 3. obesity P 1. continue iv vancomycin, zosyn, doxycycline, clindamycin 2. will follow up cultures Subjective Constitutional: Denies: fever, chills Respiratory: Reports: productive cough - decreased; Denies: shortness of breath Gastrointestinal/Abdominal: Denies: nausea, vomiting, diarrhea Musculoskeletal: Reports: pain - left leg decreased Allergies: Coded Allergies: No Known Allergies (Unverified , 10/05/18) Objective Vital Signs Last 24 Hour Vital Signs Date Time Temp Pulse Resp B/P (MAP) Pulse Ox O2 Delivery O2 Flow Rate FiO2 10/09/18 08:00 98.2 90 18 153/84 (107) 96 10/09/18 04:00 98 10/09/18 04:00 Room Air 10/09/18 04:00 98.0 86 20 141/79 (99) 98 10/09/18 00:00 97 10/09/18 00:00 Room Air 10/09/18 00:00 97.9 96 16 133/75 (94) 97 10/08/18 20:00 97.7 99 16 142/60 (87) 98 10/08/18 20:00 Room Air 10/08/18 19:07 97 10/08/18 16:00 Room Air 10/08/18 16:00 98.4 98 22 124/69 (87) 95 10/08/18 15:21 99 10/08/18 12:00 Room Air 10/08/18 12:00 97.9 94 22 133/69 (90) 98 10/08/18 11:36 95 Height (Feet): 6 Height (Inches): 2.00 Weight (Pounds): 470 Respiratory/Chest: lungs clear Cardiovascular: normal rate, regular rhythm, no gallop/murmur Abdomen: soft, non tender Extremities: other - + edema, left leg erythema decreased Laboratory Tests Test 10/09/18 04:30 White Blood Count 15.3 K/UL (4.8-10.8) H Red Blood Count 4.74 M/UL (4.70-6.10) Hemoglobin 13.5 G/DL (14.2-18.0) L Hematocrit 44.5 % (42.0-52.0) Mean Corpuscular Volume 94 FL (80-99) Mean Corpuscular Hemoglobin 28.5 PG (27.0-31.0) Mean Corpuscular Hemoglobin Concent 30.4 G/DL (32.0-36.0) L Red Cell Distribution Width 14.9 % (11.6-14.8) H Platelet Count 376 K/UL (150-450) Mean Platelet Volume 5.7 FL (6.5-10.1) L Neutrophils (%) (Auto) 75.9 % (45.0-75.0) H Lymphocytes (%) (Auto) 17.5 % (20.0-45.0) L Monocytes (%) (Auto) 4.4 % (1.0-10.0) Eosinophils (%) (Auto) 1.0 % (0.0-3.0) Basophils (%) (Auto) 1.1 % (0.0-2.0) Sodium Level 143 MMOL/L (136-145) Potassium Level 4.4 MMOL/L (3.5-5.1) Chloride Level 104 MMOL/L (98-107) Carbon Dioxide Level 25 MMOL/L (21-32) Anion Gap 15 mmol/L (5-15) Blood Urea Nitrogen 8 mg/dL (7-18) Creatinine 1.1 MG/DL (0.55-1.30) Estimat Glomerular Filtration Rate > 60 mL/min (>60) Glucose Level 62 MG/DL (74-106) L Calcium Level 9.0 MG/DL (8.5-10.1) Total Bilirubin 0.2 MG/DL (0.2-1.0) Aspartate Amino Transf (AST/SGOT) 50 U/L (15-37) H Alanine Aminotransferase (ALT/SGPT) 71 U/L (12-78) Alkaline Phosphatase 72 U/L (46-116) Total Protein 7.5 G/DL (6.4-8.2) Albumin 2.6 G/DL (3.4-5.0) L Globulin 4.9 g/dL Albumin/Globulin Ratio 0.5 (1.0-2.7) L Current Medications Medications (Trade) Dose Ordered Sig/Jeffy Route PRN Reason Start Time Stop Time Status Last Admin Dose Admin Acetaminophen (Tylenol) 650 mg Q4H PRN ORAL Mild Pain/Temp > 100.5 10/09/18 06:56 11/04/18 06:55 Acetaminophen/ Hydrocodone Bitart ([place] 10/325) 1 tab Q4H PRN ORAL For Pain 4-10 10/09/18 08:45 10/16/18 08:44 10/09/18 09:38 Clindamycin HCl/ Dextrose 50 ml @ 100 mls/hr Q6HR IV 10/09/18 12:00 10/15/18 11:59 Doxycycline Monohydrate (Doxycycline Monohydrate) 100 mg EVERY 12 HOURS ORAL 10/09/18 09:00 10/14/18 15:03 10/09/18 09:31 Guaifenesin/ Dextromethorphan (Robitussin DM Syrup) 10 ml Q4H PRN ORAL For Cough 10/09/18 06:56 11/05/18 06:55 Heparin Sodium (Porcine) (Heparin 5000 units/ml) 5,000 units EVERY 12 HOURS SUBQ 10/09/18 09:00 11/05/18 08:59 10/09/18 09:33 Ondansetron HCl (Zofran) 4 mg Q6H PRN IVP Nausea & Vomiting 10/09/18 06:57 11/04/18 06:56 Piperacillin Sod/ Tazobactam Sod 4.5 gm/Sodium Chloride 110 ml @ 27.5 mls/hr EVERY 8 HOURS IVPB 10/09/18 14:00 10/14/18 13:59 Promethazine HCl/ Codeine (Phenergan with Codeine) 5 ml Q4H PRN ORAL For Cough 10/09/18 07:00 11/06/18 14:59 Sodium Chloride 1,000 ml @ 100 mls/hr Q10H IV 10/09/18 07:00 11/04/18 06:59 10/09/18 07:03 Temazepam (Restoril) 30 mg HSPRN PRN ORAL Insomnia 10/09/18 21:30 10/13/18 21:28 Vancomycin HCl (Vanco rx to dose) 1 ea DAILY PRN MISC Per rx protocol 10/09/18 09:00 11/04/18 22:29 Vancomycin HCl/ Dextrose 275 ml @ 184 mls/hr Q8H IVPB 10/09/18 14:00 10/12/18 05:59 Bradford Plata MD Oct 09, 2018 10:51
[2018-10-09 12:00] VITALS: BP 109/71
--- NOTE | 2018-10-09 12:45 | Diagnostic Imaging Report ---
EXAM: US Left Lower Extremity Non-Vascular, Complete CLINICAL HISTORY: ABSCESS TECHNIQUE: Real-time ultrasound scan of the left lower extremity with image documentation. COMPARISON: No relevant prior studies available. FINDINGS: Soft tissues: Diffuse subcutaneous soft tissue edema throughout the anterior aspect of the lower extremity. No loculated fluid or abscess identified. IMPRESSION: 1. No loculated fluid or abscess identified. 2. Diffuse subcutaneous soft tissue edema throughout the anterior aspect of the lower extremity.
--- NOTE | 2018-10-09 13:20 | NUR ---
NURSE NOTES: Dr. Rainey notified of LLE vascular US results, no abscess only edema, orders received for Percocet PRN, see orders. Patient updated with new orders, verbalized understanding.
--- NOTE | 2018-10-09 14:06 | NUR ---
CASE MANAGEMENT:REVIEW 10/09/18 SI: SEPSIS. LEG CELLULITIS. OBESITY T 98.2 HR 90 RR 18 B/P 153/84 SATS 96% on ra WBC 15.3 GLU 62 AST 50 IS: IV CLINDAMYCIN Q6HRS IV ZOSYN Q8HRS IV VANCOMYCIN Q8HRS IVF@100/HR DOXYCYCLINE PO Q12H : MED/SURG STATUS DCP: FROM HOME
[2018-10-09 16:00] VITALS: BP 117/73
--- NOTE | 2018-10-09 19:25 | NUR ---
NURSE NOTES: Received report from HOLLY Dawn. patient alert, oriented, call light within reach, bed in low position, locked, side rails up x2. Left leg elevated. Skin warm to touch, pedal pulses present, non-pitting gross edema. Will continue to monitor.
--- NOTE | 2018-10-09 19:25 | NUR ---
HAND-OFF: Report given to Fatoumata BARRERA.
[2018-10-09 20:00] VITALS: BP 144/81
[2018-10-09] MEDS ORDERED: Tubing IV Secondary IV ONE (20:52)
--- NOTE | 2018-10-09 21:12 | NUR ---
NURSE NOTES: Left message for Dr Wild regarding need for pain medication. Percocet did not help his pain and Matt was dc'd earlier.
--- NOTE | 2018-10-09 21:14 | NUR ---
NURSE NOTES: Called for bedside comode.
--- NOTE | 2018-10-09 21:47 | Cardiology Report ---
APPROVED REPORT EKG Measurement Heart [id number] Sinus tachycardia Possible Inferior infarct, age undetermined Abnormal ECG
--- NOTE | 2018-10-09 22:16 | NUR ---
NURSE NOTES: Left message for Dr Wild regarding Percocet not taking care of patient's pain.
[2018-10-10] VITALS: BP 144/79
[2018-10-10] MEDS: Clindamycin 900mg 50 ML IV SCH ×5 (00:07→23:57)
--- NOTE | 2018-10-10 00:29 | NUR ---
NURSE NOTES: Placed call to physician, left message regarding need for pain medication.
--- NOTE | 2018-10-10 00:30 | NUR ---
NURSE NOTES: Patient states pain 5-6/10, increasing when he moves his leg. Has been sleeping on and off, VSS.
--- NOTE | 2018-10-10 02:02 | NUR ---
NURSE NOTES: Sleeping. No distress noted.
[2018-10-10] MEDS: Piperacillin/Tazobactam 4.5 GM in NS 110 ML IVPB SCH ×4 (03:34→21:17)
--- NOTE | 2018-10-10 03:51 | NUR ---
NURSE NOTES: Reminded patient that Percocet is due soon, states he doesn't want it because "it doesn't do anything". States his pain when he moves his leg is always a 10/10, if he is not moving it it's 4-5/10. Encouraged to call if he changes his mind and as needed for any assistance.
[2018-10-10 04:00] VITALS: BP 144/87
[2018-10-10] MEDS: Vancomycin 275 ML IVPB SCH ×3 (06:33→22:33)
--- NOTE | 2018-10-10 07:40 | NUR ---
HAND-OFF: Report given to HOLLY Russell. Rounding done.
--- NOTE | 2018-10-10 07:53 | NUR ---
NURSE NOTES: Received report from HOLLY Ham. Rounding done with outgoing nurse. Pt a/o x 4 in bed. Left leg is swollen. c/o left leg pain as 4/10. Left AC IV is patent. Vancomycin is running at this time. Bed in lowest position, call light within reach. Will continue to monitor.
[2018-10-10 08:00] VITALS: BP 131/77
--- NOTE | 2018-10-10 08:35 | General Progress Note ---
Assessment/Plan Problem List: (1) Morbid obesity ICD Codes: E66.01 - Morbid (severe) obesity due to excess calories SNOMED: 820872120 (2) Tachycardia ICD Codes: R00.0 - Tachycardia, unspecified; R65.20 - Severe sepsis without septic shock SNOMED: 8464731 (3) Cellulitis, leg ICD Codes: L03.119 - Cellulitis of unspecified part of limb SNOMED: 080869688 (4) Severe sepsis ICD Codes: A41.9 - Sepsis, unspecified organism; R65.20 - Severe sepsis without septic shock SNOMED: 86843986 Status: stable Assessment/Plan: iv abx follow up cultures soft tissue us- neg for abscess mouth wash Subjective ROS Limited/Unobtainable: No Constitutional: Reports: malaise, weakness HEENT: Reports: no symptoms Cardiovascular: Reports: no symptoms Respiratory: Reports: no symptoms Gastrointestinal/Abdominal: Reports: no symptoms Genitourinary: Reports: no symptoms Neurologic/Psychiatric: Reports: no symptoms Endocrine: Reports: no symptoms Hematologic/Lymphatic: Reports: no symptoms Allergies: Coded Allergies: No Known Allergies (Unverified , 10/05/18) All Systems: reviewed and negative except above Subjective better today. decreased pain and fever. mouth sores Objective Last 24 Hour Vital Signs Date Time Temp Pulse Resp B/P (MAP) Pulse Ox O2 Delivery O2 Flow Rate FiO2 10/10/18 04:00 98.1 98 20 144/87 (106) 95 10/10/18 00:00 99.2 95 18 144/79 (100) 97 10/09/18 21:00 Room Air 10/09/18 20:00 98.2 95 18 144/81 (102) 96 10/09/18 16:00 97.8 96 18 117/73 (88) 95 10/09/18 12:00 98.2 107 18 109/71 (84) 95 Intake and Output 10/09/18 10/10/18 18:59 06:59 Intake Total 2300 ml 1800 ml Output Total 1900 ml 1975 ml Balance 400 ml -175 ml Intake Oral 1400 ml 600 ml IV Total 900 ml 1200 ml Output Urine Total 1900 ml 1975 ml # Voids 3 5 # Bowel Movements 1 Height (Feet): 6 Height (Inches): 2.00 Weight (Pounds): 470 Objective General Appearance: WD/WN, alert Neck: supple Cardiovascular: regular rhythm Respiratory/Chest: normal breath sounds Abdomen: normal bowel sounds, non tender, soft, no organomegaly Edema: 3+ Leg (L), 3+ Leg (R) Skin: rash Stephon Rainey MD Oct 10, 2018 08:35
[2018-10-10] MEDS: Heparin 5000 units/ml inj SUBQ SCH ×2 (09:49→21:19)
--- NOTE | 2018-10-10 10:56 | Infectious Diseases Prog Note ---
Assessment/Plan Assessment/Plan antibiotics ; vancomycin iv, zosyn, doxycycline,clindamycin A 1. left leg cellulitis improving 2. leucocytosis improving 3. obesity P 1. continue iv vancomycin, zosyn, doxycycline, clindamycin 2. will follow up cultures Subjective Constitutional: Denies: fever, chills Respiratory: Reports: productive cough; Denies: shortness of breath Gastrointestinal/Abdominal: Denies: nausea, vomiting, diarrhea Musculoskeletal: Reports: pain Allergies: Coded Allergies: No Known Allergies (Unverified , 10/05/18) Objective Vital Signs Last 24 Hour Vital Signs Date Time Temp Pulse Resp B/P (MAP) Pulse Ox O2 Delivery O2 Flow Rate FiO2 10/10/18 09:00 Room Air 10/10/18 08:00 98.0 96 20 131/77 (95) 96 10/10/18 04:00 98.1 98 20 144/87 (106) 95 10/10/18 00:00 99.2 95 18 144/79 (100) 97 10/09/18 21:00 Room Air 10/09/18 20:00 98.2 95 18 144/81 (102) 96 10/09/18 16:00 97.8 96 18 117/73 (88) 95 10/09/18 12:00 98.2 107 18 109/71 (84) 95 Height (Feet): 6 Height (Inches): 2.00 Weight (Pounds): 470 Respiratory/Chest: lungs clear Cardiovascular: normal rate, regular rhythm, no gallop/murmur Abdomen: soft, non tender Extremities: other - + edema bilaterally, left leg erythema Current Medications Medications (Trade) Dose Ordered Sig/Jeffy Route PRN Reason Start Time Stop Time Status Last Admin Dose Admin Acetaminophen (Tylenol) 650 mg Q4H PRN ORAL Mild Pain/Temp > 100.5 10/09/18 06:56 11/04/18 06:55 Clindamycin HCl/ Dextrose 50 ml @ 100 mls/hr Q6HR IV 10/09/18 12:00 10/15/18 11:59 10/10/18 06:32 Doxycycline Monohydrate (Doxycycline Monohydrate) 100 mg EVERY 12 HOURS ORAL 10/09/18 09:00 10/14/18 15:03 10/10/18 09:45 Guaifenesin/ Dextromethorphan (Robitussin DM Syrup) 10 ml Q4H PRN ORAL For Cough 10/09/18 06:56 11/05/18 06:55 Heparin Sodium (Porcine) (Heparin 5000 units/ml) 5,000 units EVERY 12 HOURS SUBQ 10/09/18 09:00 11/05/18 08:59 10/10/18 09:49 Ondansetron HCl (Zofran) 4 mg Q6H PRN IVP Nausea & Vomiting 10/09/18 06:57 11/04/18 06:56 Oxycodone/ Acetaminophen (Percocet 10325) 1 tab Q8H PRN ORAL MODERATE TO SEVERE PAIN 10/09/18 13:32 10/16/18 13:31 10/09/18 20:10 Piperacillin Sod/ Tazobactam Sod 4.5 gm/Sodium Chloride 110 ml @ 220 mls/hr Q6H IVPB 10/09/18 15:00 10/16/18 14:59 10/10/18 09:45 Promethazine HCl/ Codeine (Phenergan with Codeine) 5 ml Q4H PRN ORAL For Cough 10/09/18 07:00 11/06/18 14:59 Sodium Chloride 1,000 ml @ 100 mls/hr Q10H IV 10/09/18 07:00 11/04/18 06:59 10/10/18 03:34 Temazepam (Restoril) 30 mg HSPRN PRN ORAL Insomnia 10/09/18 21:30 10/13/18 21:28 10/10/18 00:06 Vancomycin HCl (Vanco rx to dose) 1 ea DAILY PRN MISC Per rx protocol 10/09/18 09:00 11/04/18 22:29 Vancomycin HCl/ Dextrose 275 ml @ 184 mls/hr Q8H IVPB 10/09/18 14:00 10/12/18 05:59 10/10/18 06:33 Bradford Plata MD Oct 10, 2018 10:56
[2018-10-10] MEDS: Magic Mouth Wash 60ml (Benadryl/Mylanta/Visc Lido) ORAL SCH ×3 (12:10→18:00)
[2018-10-10] MEDS: Guaifenesin/DM 10ml syrup ORAL PRN (12:17)
--- NOTE | 2018-10-10 12:19 | NUR ---
RD ASSESSMENT & RECOMMENDATIONS SEE CARE ACTIVITY FOR COMPLETE ASSESSMENT DAILY ESTIMATED NEEDS: Needs based on Morbid obesity/ 120kg abw 15-18 kcals/kg 6901-5051 total kcals 1-1.3 g protein/kg 120-156 g total protein 20-25 mL/kg 9516-5512 total fluid mLs NUTRITION DIAGNOSIS: Morbid obesity R/T life style factors, excessive energy intake [employer] as evidenced by BMI > 60. CURRENT DIET:CARDIAC PO DIET RECOMMENDATIONS: CARDIAC + consider adding CCHO MED for calorie control ADDITIONAL RECOMMENDATIONS: * Standing wt for accurate CBW * Re-attempt diet ed as able -> diet ed on healthy wt loss attempted 10/10, pt not receptive * Weekly wts
--- NOTE | 2018-10-10 13:21 | NUR ---
CASE MANAGEMENT:REVIEW 10/10/18 SI: SEPSIS. LLE CELLULITIS. LEUKOCYTOSIS 98.0 96 20 131/77 96% ON RA IS: IV ZOSYN Q6HRS IV VANCOMYCIN Q8HR IV CLINDAMYCIN Q6HRS DOXYCYCLINE PO Q12 IVF@100/HR HEPARIN SQ Q12 : MED/SURG STATUS [facility] DCP: FROM HOME PLAN: CONTINUE IV ABX PHYSICAL THERAPY EVAL AND TREAT DAILY
[2018-10-10 16:00] VITALS: BP 136/70
--- NOTE | 2018-10-10 19:54 | NUR ---
HAND-OFF: Report given to HOLLY Baron.
[2018-10-10 20:00] VITALS: BP 142/78
--- NOTE | 2018-10-10 20:00 | NUR ---
NURSE NOTES: Received a report from HOLLY Russell. Done rounds. Pt is awake and alert. No acute distress noted. Left leg cellulitis site redness with warmth persist. Pain tolerable state during rest but refuses take medication. Will continue to monitor pain and explain to take medication if needed. Pt understood. No chilling or febrile sensation. Triple ABT treatment on going for Cellulitis. IV site is patent without infiltration. Leave call light within reach. Will continue to monitor.
[2018-10-11] MEDS: Piperacillin/Tazobactam 4.5 GM in NS 110 ML IVPB SCH ×4 (03:07→21:15)
[2018-10-11 04:00] VITALS: BP 138/76
--- NOTE | 2018-10-11 05:49 | NUR ---
NURSE NOTES: Vanco Trough result came out 12.8 and contact to pharmacist. Confirm to keep the same dose 1.5g to maintain Vanco trough result 10 to 15. Will continue to monitor.
--- NOTE | 2018-10-11 06:00 | NUR ---
NURSE NOTES: Pt had pain medication d/t left leg throbbing constant pain 6/10 during rest and went down to 4/10. But Pt states that PRN Percocet is not effective. Will contact MD for other options to control pain. Will endorse AM shift accordingly. Will continue to monitor.
[2018-10-11] MEDS: Clindamycin 900mg 50 ML IV SCH ×3 (06:34→17:42)
[2018-10-11] MEDS: Vancomycin 275 ML IVPB SCH ×3 (06:34→22:01)
--- NOTE | 2018-10-11 07:15 | NUR ---
HAND-OFF: Report given to HOLLY Russell. Round is done.
--- NOTE | 2018-10-11 07:27 | NUR ---
NURSE NOTES: Received report from HOLLY Cortes. Patient awake in bed. c/o left leg pain as 6/10. Pt mentioned percocet was not working. Will ask MD for pain medication. Will continue to monitor.
[2018-10-11 08:00] VITALS: BP 111/63
--- NOTE | 2018-10-11 08:35 | NUR ---
NURSE NOTES: Dr. Rainey came and ask about pain medication. said he cannot order stronger medication.
[2018-10-11] MEDS: Magic Mouth Wash 60ml (Benadryl/Mylanta/Visc Lido) ORAL SCH ×3 (08:43→17:41)
[2018-10-11] MEDS: Heparin 5000 units/ml inj SUBQ SCH ×2 (08:43→21:21)
--- NOTE | 2018-10-11 11:13 | General Progress Note ---
Assessment/Plan Problem List: (1) Morbid obesity ICD Codes: E66.01 - Morbid (severe) obesity due to excess calories SNOMED: 947694130 (2) Tachycardia ICD Codes: R00.0 - Tachycardia, unspecified; R65.20 - Severe sepsis without septic shock SNOMED: 4382103 (3) Cellulitis, leg ICD Codes: L03.119 - Cellulitis of unspecified part of limb SNOMED: 800016563 (4) Severe sepsis ICD Codes: A41.9 - Sepsis, unspecified organism; R65.20 - Severe sepsis without septic shock SNOMED: 86467829 Status: stable Assessment/Plan: iv abx follow up cultures soft tissue us- neg for abscess mouth wash pain rx advanced Subjective ROS Limited/Unobtainable: No Constitutional: Reports: no symptoms HEENT: Reports: no symptoms Cardiovascular: Reports: no symptoms Respiratory: Reports: no symptoms Gastrointestinal/Abdominal: Reports: no symptoms Genitourinary: Reports: no symptoms Neurologic/Psychiatric: Reports: no symptoms Endocrine: Reports: no symptoms Hematologic/Lymphatic: Reports: no symptoms Allergies: Coded Allergies: No Known Allergies (Unverified , 10/05/18) All Systems: reviewed and negative except above Subjective left leg pain swelling getting better. has pain Objective Last 24 Hour Vital Signs Date Time Temp Pulse Resp B/P (MAP) Pulse Ox O2 Delivery O2 Flow Rate FiO2 10/11/18 09:00 Room Air 10/11/18 08:00 98.2 102 19 111/63 (79) 97 10/11/18 04:00 97.9 18 138/76 (96) 97 10/10/18 21:00 Room Air 10/10/18 20:00 97.6 96 18 142/78 (99) 97 10/10/18 16:00 98.0 87 18 136/70 (92) 97 Intake and Output 10/10/18 10/11/18 18:59 06:59 Intake Total 1060 ml 1450 ml Output Total 1950 ml Balance -890 ml 1450 ml Intake Oral 700 ml 400 ml IV Total 360 ml 1050 ml Output Urine Total 1950 ml # Voids 2 4 # Bowel Movements 1 Laboratory Tests 10/11/18 05:05: Vancomycin Level Trough 12.8H Height (Feet): 6 Height (Inches): 2.00 Weight (Pounds): 470 Objective General Appearance: WD/WN, alert Neck: supple Cardiovascular: regular rhythm Respiratory/Chest: normal breath sounds Abdomen: normal bowel sounds, non tender, soft, no organomegaly Edema: 3+ Leg (L), 3+ Leg (R) Skin: rash Stephon Rainey MD Oct 11, 2018 11:13
[2018-10-11 12:00] VITALS: BP 108/71
--- NOTE | 2018-10-11 12:44 | Infectious Diseases Prog Note ---
Assessment/Plan Assessment/Plan A 1. left leg cellulitis improving 2. leucocytosis improving 3. obesity P 1. continue iv vancomycin, Zosyn, doxycycline, clindamycin 2. will follow up cultures Subjective ROS Limited/Unobtainable: No Constitutional: Reports: no symptoms Respiratory: Reports: no symptoms Cardiovascular: Reports: no symptoms Gastrointestinal/Abdominal: Reports: no symptoms Genitourinary: Reports: no symptoms Musculoskeletal: Reports: pain, swelling, other - leg improving Allergies: Coded Allergies: No Known Allergies (Unverified , 10/05/18) Objective Vital Signs Last 24 Hour Vital Signs Date Time Temp Pulse Resp B/P (MAP) Pulse Ox O2 Delivery O2 Flow Rate FiO2 10/11/18 12:00 97.5 72 21 108/71 (83) 97 10/11/18 09:00 Room Air 10/11/18 08:00 98.2 102 19 111/63 (79) 97 10/11/18 04:00 97.9 18 138/76 (96) 97 10/10/18 21:00 Room Air 10/10/18 20:00 97.6 96 18 142/78 (99) 97 10/10/18 16:00 98.0 87 18 136/70 (92) 97 Height (Feet): 6 Height (Inches): 2.00 Weight (Pounds): 470 General Appearance: other - obese Respiratory/Chest: lungs clear Cardiovascular: normal rate Abdomen: soft, non tender Extremities: other - edema of left leg Skin: other - erythema of left leg below knee decreasing Neurologic/Psychiatric: alert, oriented x 3, responsive Laboratory Tests Test 10/11/18 05:05 Vancomycin Level Trough 12.8 ug/mL (5.0-12.0) H Current Medications Medications (Trade) Dose Ordered Sig/Jeffy Route PRN Reason Start Time Stop Time Status Last Admin Dose Admin Acetaminophen (Tylenol) 650 mg Q4H PRN ORAL Mild Pain/Temp > 100.5 10/09/18 06:56 11/04/18 06:55 Clindamycin HCl/ Dextrose 50 ml @ 100 mls/hr Q6HR IV 10/09/18 12:00 10/15/18 11:59 10/11/18 12:03 Doxycycline Monohydrate (Doxycycline Monohydrate) 100 mg EVERY 12 HOURS ORAL 10/09/18 09:00 10/14/18 15:03 10/11/18 08:42 Guaifenesin/ Dextromethorphan (Robitussin DM Syrup) 10 ml Q4H PRN ORAL For Cough 10/09/18 06:56 11/05/18 06:55 10/10/18 12:17 Heparin Sodium (Porcine) (Heparin 5000 units/ml) 5,000 units EVERY 12 HOURS SUBQ 10/09/18 09:00 11/05/18 08:59 10/11/18 08:43 Morphine Sulfate (Morphine Sulfate) 1 mg TID PRN IVP Severe Pain (Pain Scale 7-10) 10/11/18 08:45 10/18/18 08:44 Ondansetron HCl (Zofran) 4 mg Q6H PRN IVP Nausea & Vomiting 10/09/18 06:57 11/04/18 06:56 Oxycodone/ Acetaminophen (Percocet 10/325) 1 tab Q8H PRN ORAL MODERATE TO SEVERE PAIN 10/09/18 13:32 10/16/18 13:31 10/11/18 04:04 Piperacillin Sod/ Tazobactam Sod 4.5 gm/Sodium Chloride 110 ml @ 220 mls/hr Q6H IVPB 10/09/18 15:00 10/16/18 14:59 10/11/18 08:42 Promethazine HCl/ Codeine (Phenergan with Codeine) 5 ml Q4H PRN ORAL For Cough 10/09/18 07:00 11/06/18 14:59 Sodium Chloride 1,000 ml @ 100 mls/hr Q10H IV 10/09/18 07:00 11/04/18 06:59 10/11/18 03:55 Temazepam (Restoril) 30 mg HSPRN PRN ORAL Insomnia 10/09/18 21:30 10/13/18 21:28 10/10/18 22:40 Vancomycin HCl (Vanco rx to dose) 1 ea DAILY PRN MISC Per rx protocol 10/09/18 09:00 11/04/18 22:29 Vancomycin HCl/ Dextrose 275 ml @ 184 mls/hr Q8H IVPB 10/09/18 14:00 10/12/18 05:59 10/11/18 06:34 Ezio Rico MD Oct 11, 2018 12:44
[2018-10-11] MEDS: Morphine Sulfate 2mg/ml Inj(IV/IM USE ONLY) IVP PRN (13:26)
--- NOTE | 2018-10-11 13:37 | NUR ---
PT note PT eval completed; patient is independent in bed mobility and transfers. Patient requests to defer PT at this time. States that he will be fine once the infection on the LLE is resolved. Explained to patient the benefits of exercises and in maintaining mobility but patient still wants to defer PT. Patient was instructed on HEP for ankle pumps and deep breathing and to sit at the EOB often. Patient verbalized his understanding. Addendum: 10/11/18 at 1338 by ADORE FELIX PT Amended: Links added.
--- NOTE | 2018-10-11 15:08 | NUR ---
NURSE NOTES: Left the message to Dr. Rainey regarding that vancomycin will be tomorrow 10/12 0559 am.
[2018-10-11 15:51] VITALS: BP 128/84
--- NOTE | 2018-10-11 19:38 | NUR ---
HAND-OFF: Report given to HOLLY Baron. Patient is stable.
--- NOTE | 2018-10-11 19:43 | NUR ---
NURSE NOTES: Received a report from HOLLY Russell. Done round. Pt is awake and alert,watching TV. Pt states that pain is okay for now. Will continue to monitor.
[2018-10-11 20:00] VITALS: BP 137/77
--- NOTE | 2018-10-11 21:00 | NUR ---
NURSE NOTES: Pt is awake and alert. Breathing is even and non labored. No acute distress noted. Left leg swelling and redness persist. Keep elevated with pillow. Throbbing pain tolerable state. Remind pt of pain medication if needed as ordered. Pt verbalizes understanding. IV triple ABT and IV fluid hydration as ordered. IV site is clear without infiltration. Leave call light within reach. Bed is locked and lowest. Will continue to monitor.
[2018-10-12 00:55] VITALS: BP 133/87
[2018-10-12] MEDS: Morphine Sulfate 2mg/ml Inj(IV/IM USE ONLY) IVP PRN (01:13)
[2018-10-12] MEDS: Piperacillin/Tazobactam 4.5 GM in NS 110 ML IVPB SCH ×4 (03:00→21:26)
[2018-10-12 04:55] VITALS: BP 137/79
[2018-10-12] MEDS: Vancomycin 275 ML IVPB SCH ×3 (05:19→22:13)
[2018-10-12] MEDS: Clindamycin 900mg 50 ML IV SCH ×5 (05:21→23:49)
--- NOTE | 2018-10-12 07:30 | NUR ---
HAND-OFF: Report given to HOLLY aMrs. Done rounds.
--- NOTE | 2018-10-12 08:00 | NUR ---
NURSE NOTES: Received report from Tod BARRERA, pt a/a/o laying in bed with no signs of distress or other issues at this time. pt has BLE edema and redness due to cellulitis. Iv on the Left AC gauge#20 running NS@100ml/hr. pt is in a cardiac diet, and is able to tolerated well with no signs of n/v. call light within reach, bed in lowest position. side rale sup x2. I will f/u as needed.
[2018-10-12] MEDS: Magic Mouth Wash 60ml (Benadryl/Mylanta/Visc Lido) ORAL SCH ×4 (08:26→17:37)
[2018-10-12] MEDS: Heparin 5000 units/ml inj SUBQ SCH ×2 (08:27→21:27)
[2018-10-12 08:29] VITALS: BP 147/83
[2018-10-12 11:38] VITALS: BP 135/80
[2018-10-12] MEDS ORDERED: NS 500ML ONE (13:28)
[2018-10-12] MEDS ORDERED: NS 275ml ONE (13:28)
--- NOTE | 2018-10-12 13:51 | General Progress Note ---
Assessment/Plan Problem List: (1) Morbid obesity ICD Codes: E66.01 - Morbid (severe) obesity due to excess calories SNOMED: 692035854 (2) Tachycardia ICD Codes: R00.0 - Tachycardia, unspecified; R65.20 - Severe sepsis without septic shock SNOMED: 1113681 (3) Cellulitis, leg ICD Codes: L03.119 - Cellulitis of unspecified part of limb SNOMED: 230803085 (4) Severe sepsis ICD Codes: A41.9 - Sepsis, unspecified organism; R65.20 - Severe sepsis without septic shock SNOMED: 83339741 Status: stable Assessment/Plan: iv abx mouth wash pain rx advanced dc planning when able to convert to po meds Subjective ROS Limited/Unobtainable: No Constitutional: Reports: malaise, weakness HEENT: Reports: no symptoms Cardiovascular: Reports: no symptoms Respiratory: Reports: no symptoms Gastrointestinal/Abdominal: Reports: no symptoms Genitourinary: Reports: no symptoms Neurologic/Psychiatric: Reports: no symptoms Endocrine: Reports: no symptoms Hematologic/Lymphatic: Reports: no symptoms Allergies: Coded Allergies: No Known Allergies (Unverified , 10/05/18) Subjective left leg pain swelling getting better. has pain when walking Objective Last 24 Hour Vital Signs Date Time Temp Pulse Resp B/P (MAP) Pulse Ox O2 Delivery O2 Flow Rate FiO2 10/12/18 11:38 98.0 90 20 135/80 (98) 96 10/12/18 09:00 Room Air 10/12/18 08:29 98.5 99 20 147/83 (104) 95 10/12/18 04:55 98.0 91 20 137/79 (98) 96 10/12/18 00:55 98.7 85 20 133/87 (102) 95 10/11/18 21:00 Room Air 10/11/18 20:00 97.8 92 20 137/77 (97) 95 10/11/18 15:51 98.4 94 20 128/84 (99) 97 Intake and Output 10/11/18 10/12/18 18:59 06:59 Intake Total 2203 ml 1300 ml Output Total 650 ml Balance 1553 ml 1300 ml Intake Oral 558 ml 400 ml IV Total 1645 ml 900 ml Output Urine Total 650 ml # Voids 1 4 Height (Feet): 6 Height (Inches): 2.00 Weight (Pounds): 470 Objective General Appearance: WD/WN, alert Neck: supple Cardiovascular: regular rhythm Respiratory/Chest: normal breath sounds Abdomen: normal bowel sounds, non tender, soft, no organomegaly Edema: 3+ Leg (L), 3+ Leg (R) Skin: rash Stephon Rainey MD Oct 12, 2018 13:51
[2018-10-12 15:14] LABS: EOSINOPHILS % (AUTO) 3.6 % (0.0-3.0); HEMATOCRIT 40.1 % (42.0-52.0); HEMOGLOBIN 13.1 G/DL (14.2-18.0); LYMPHOCYTES % (AUTO) 14.8 % (20.0-45.0); MEAN CORPUSCULAR VOLUME 87 FL (80-99); MONOCYTES % (AUTO) 5.7 % (1.0-10.0); NEUTROPHILS % (AUTO) 74.9 % (45.0-75.0); PLATELET COUNT 520 K/UL (150-450); RED BLOOD COUNT 4.62 M/UL (4.70-6.10); RED CELL DISTRIBUTION WIDTH 13.5 % (11.6-14.8); WHITE BLOOD COUNT 14.2 K/UL (4.8-10.8)
[2018-10-12] MEDS: Guaifenesin/DM 10ml syrup ORAL PRN (15:40)
[2018-10-12 15:49] LABS: ALANINE AMINOTRANSFERASE 74 U/L (12-78); ALBUMIN 2.8 G/DL (3.4-5.0); ALBUMIN/GLOBULIN RATIO 0.6 (1.0-2.7); ALKALINE PHOSPHATASE 58 U/L (46-116); ANION GAP 10 mmol/L (5-15); ASPARTATE AMINO TRANSFERASE 34 U/L (15-37); BILIRUBIN,TOTAL 0.3 MG/DL (0.2-1.0); BLOOD UREA NITROGEN 12 mg/dL (7-18); CARBON DIOXIDE 28 MMOL/L (21-32); CHLORIDE 102 MMOL/L (98-107); CREATININE 1.2 MG/DL (0.55-1.30); POTASSIUM 4.3 MMOL/L (3.5-5.1); SODIUM 140 MMOL/L (136-145)
[2018-10-12 16:10] VITALS: BP 141/63
--- NOTE | 2018-10-12 19:29 | NUR ---
HAND-OFF: Report given to Tod BARRERA, pt in stable condition.
--- NOTE | 2018-10-12 19:40 | NUR ---
NURSE NOTES: Receive a report from HOLLY Mars. Done round. Will continue to monitor.
[2018-10-12 20:00] VITALS: BP 142/87
--- NOTE | 2018-10-12 21:30 | NUR ---
NURSE NOTES: Pt's girlfriend brought in [id number] mouth sore tx and analgesic ointments; per BRENNA Oliveira to continue Abreva. Informed pt hospital policy regarding not leaving any meds at bedside; pt verbalized understanding and states girlfriend will take ointments home. Will continue to monitor.
--- NOTE | 2018-10-12 22:00 | NUR ---
NURSE NOTES: Pt is awake and alert. No acute distress noted. Breathing is even and non labored. Lung sound is clear upon auscultation. No coughing noted at this time. No chilling or febrile sensation noted. Left leg swelling and redness still noted. keep elevated with pillow while in bed. Throbbing pain on left leg is tolerable state, 3/10 during rest but does not want to any pain medication. Foot down on the floor causes pain but goes away when back to bed. On triple ABT IV and IV fluid hydration. Self medication for cold sore is taken and will provide it. Bed is locked and lowest. Call light within reach. Will continue to monitor.
[2018-10-13] VITALS: BP 134/80
[2018-10-13] MEDS: Morphine Sulfate 2mg/ml Inj(IV/IM USE ONLY) IVP PRN (01:41)
[2018-10-13] MEDS: Piperacillin/Tazobactam 4.5 GM in NS 110 ML IVPB SCH ×2 (02:44→08:48)
[2018-10-13 04:55] VITALS: BP 126/65
[2018-10-13] MEDS: Clindamycin 900mg 50 ML IV SCH ×2 (05:21→12:03)
[2018-10-13] MEDS: Vancomycin 275 ML IVPB SCH ×3 (05:48→21:16)
[2018-10-13] MEDS: Abreva 10% cream 2gm TP SCH ×5 (06:46→17:21)
--- NOTE | 2018-10-13 07:30 | NUR ---
HAND-OFF: Report given to HOLLY Mars. Done round.
[2018-10-13 08:00] VITALS: BP 130/73
--- NOTE | 2018-10-13 08:00 | NUR ---
NURSE NOTES: Received report Tod BARRERA, pt a/a/o x4 laying in bed with no signs of distress or other issues at this time. BLE edema, and redness due to cellulites IV on the right FA gauge #22 . running NS@100ml/hr, also pt is in a triple IV abx. pt is able to ambulate around the room with the use of FWW. call light within reach, bed in lowest position, side rales up x2. I will f/u as needed.
[2018-10-13] MEDS: Heparin 5000 units/ml inj SUBQ SCH ×2 (08:49→20:40)
[2018-10-13] MEDS: Magic Mouth Wash 60ml (Benadryl/Mylanta/Visc Lido) ORAL SCH ×3 (08:58→17:11)
--- NOTE | 2018-10-13 10:15 | General Progress Note ---
Assessment/Plan Problem List: (1) Morbid obesity ICD Codes: E66.01 - Morbid (severe) obesity due to excess calories SNOMED: 477784240 (2) Tachycardia ICD Codes: R00.0 - Tachycardia, unspecified; R65.20 - Severe sepsis without septic shock SNOMED: 1129503 (3) Cellulitis, leg ICD Codes: L03.119 - Cellulitis of unspecified part of limb SNOMED: 740256233 (4) Severe sepsis ICD Codes: A41.9 - Sepsis, unspecified organism; R65.20 - Severe sepsis without septic shock SNOMED: 63991553 Status: stable Assessment/Plan: iv abx mouth wash pain rx advanced dc planning when able to convert to po meds Subjective ROS Limited/Unobtainable: No HEENT: Reports: no symptoms Cardiovascular: Reports: no symptoms Respiratory: Reports: no symptoms Gastrointestinal/Abdominal: Reports: no symptoms Genitourinary: Reports: no symptoms Neurologic/Psychiatric: Reports: no symptoms Endocrine: Reports: no symptoms Hematologic/Lymphatic: Reports: no symptoms Allergies: Coded Allergies: No Known Allergies (Unverified , 10/05/18) All Systems: reviewed and negative except above Subjective left leg pain swelling getting better. has pain when walking Objective Last 24 Hour Vital Signs Date Time Temp Pulse Resp B/P (MAP) Pulse Ox O2 Delivery O2 Flow Rate FiO2 10/13/18 04:55 97.6 84 20 126/65 (85) 97 10/13/18 00:00 97.8 90 20 134/80 (98) 97 10/12/18 21:00 Room Air 10/12/18 20:00 98.1 92 20 142/87 (105) 94 10/12/18 16:10 98.4 89 22 141/63 (89) 94 10/12/18 11:38 98.0 90 20 135/80 (98) 96 Intake and Output 10/12/18 10/13/18 19:00 07:00 Intake Total 1800 ml 1500 ml Output Total 1400 ml 1200 ml Balance 400 ml 300 ml Intake Oral 600 ml 500 ml IV Total 1200 ml 1000 ml Output Urine Total 1400 ml 1200 ml # Bowel Movements 1 2 Laboratory Tests 10/12/18 14:30: Sodium Level 140, Potassium Level 4.3, Chloride Level 102, Carbon Dioxide Level 28, Anion Gap 10, Blood Urea Nitrogen 12, Creatinine 1.2, Estimat Glomerular Filtration Rate > 60, Glucose Level 113H, Calcium Level 9.0, Total Bilirubin 0.3 , Aspartate Amino Transf (AST/SGOT) 34, Alanine Aminotransferase (ALT/SGPT) 74, Alkaline Phosphatase 58, Total Protein 7.5, Albumin 2.8L, Globulin 4.7, Albumin/ Globulin Ratio 0.6L 10/12/18 15:00: White Blood Count 14.2H, Red Blood Count 4.62L, Hemoglobin 13.1L, Hematocrit 40.1L, Mean Corpuscular Volume 87, Mean Corpuscular Hemoglobin 28.3, Mean Corpuscular Hemoglobin Concent 32.6, Red Cell Distribution Width 13.5, Platelet Count 520H, Mean Platelet Volume 6.1L, Neutrophils (%) (Auto) 74.9, Lymphocytes (%) (Auto) 14.8L, Monocytes (%) (Auto) 5.7, Eosinophils (%) (Auto) 3.6H, Basophils (%) (Auto) 1.0 Height (Feet): 6 Height (Inches): 2.00 Weight (Pounds): 470 Objective General Appearance: WD/WN, alert Neck: supple Cardiovascular: regular rhythm Respiratory/Chest: normal breath sounds Abdomen: normal bowel sounds, non tender, soft, no organomegaly Edema: 3+ Leg (L), 3+ Leg (R) Skin: rash Stephon Rainey MD Oct 13, 2018 10:15
--- NOTE | 2018-10-13 11:49 | NUR ---
CASE MANAGEMENT:REVIEW 10/11/18 SI: SEPSIS. LLE CELLULITIS. LEUKOCYTOSIS 97.5 72 21 108/71 97% RA IS: IV ZOSYN Q6HRS IV VANCOMYCIN Q8HR IV CLINDAMYCIN Q6HRS DOXYCYCLINE PO Q12 IVF@100/HR HEPARIN SQ Q12 : MED/SURG STATUS 3 [facility] DCP: FROM HOME PLAN: CONTINUE IV ABX 10/12/18 SI: SEPSIS. LLE CELLULITIS. LEUKOCYTOSIS 98.5 99 20 147/83 95% ON RA WBC+14.2 IS: IV ZOSYN Q6HRS IV VANCOMYCIN Q8HR IV CLINDAMYCIN Q6HRS DOXYCYCLINE PO Q12 IVF@100/HR HEPARIN SQ Q12 : MED/SURG STATUS 3 [facility] DCP: FROM HOME PLAN: CONTINUE IV ABX 10/13/18 SI: SEPSIS. LLE CELLULITIS. LEUKOCYTOSIS 97.6 84 20 126/65 97% ON RA IS: IV ZOSYN Q6HRS IV VANCOMYCIN Q8HR IV CLINDAMYCIN Q6HRS DOXYCYCLINE PO Q12 IVF@100/HR HEPARIN SQ Q12 : MED/SURG STATUS 3 [facility] DCP: FROM HOME PLAN: CONTINUE IV ABX PAIN MANAGEMENT
[2018-10-13 12:00] VITALS: BP 117/67
--- NOTE | 2018-10-13 13:15 | NUR ---
NURSE NOTES: During rounds pt complained of itchiness in his back. RN assessed pt and shows redness and hives and warm touch. Dr. Trisha Mendez is aware. RN will medicate accordantly. I will f/u as needed.
--- NOTE | 2018-10-13 13:28 | Infectious Diseases Prog Note ---
Assessment/Plan Assessment/Plan A 1. left leg cellulitis improving 2. leucocytosis improving 3. obesity 4. New rash, ? allergic drug reaction 5. Seborrheic dermatitis 6. Herpes simplex of lips P 1. continue iv vancomycin, 2. Discontinue Zosyn, doxycycline & clindamycin 2. will follow up CBC & CXR Subjective Constitutional: Reports: drenching sweats Respiratory: Reports: productive cough, other - yesterday Gastrointestinal/Abdominal: Reports: no symptoms Genitourinary: Reports: no symptoms Skin: Reports: rash, other - in back & face Allergies: Coded Allergies: No Known Allergies (Unverified , 10/05/18) Objective Vital Signs Last 24 Hour Vital Signs Date Time Temp Pulse Resp B/P (MAP) Pulse Ox O2 Delivery O2 Flow Rate FiO2 10/13/18 08:00 97.8 100 18 130/73 (92) 94 10/13/18 04:55 97.6 84 20 126/65 (85) 97 10/13/18 00:00 97.8 90 20 134/80 (98) 97 10/12/18 21:00 Room Air 10/12/18 20:00 98.1 92 20 142/87 (105) 94 10/12/18 16:10 98.4 89 22 141/63 (89) 94 Height (Feet): 6 Height (Inches): 2.00 Weight (Pounds): 470 HEENT: mucous membranes moist, other - central face rash, labile herpes Respiratory/Chest: lungs clear Cardiovascular: normal rate Abdomen: soft, non tender Extremities: other - edema of left leg Skin: rash, other - erythematous rash in back Laboratory Tests Test 10/12/18 14:30 10/12/18 15:00 Sodium Level 140 MMOL/L (136-145) Potassium Level 4.3 MMOL/L (3.5-5.1) Chloride Level 102 MMOL/L (98-107) Carbon Dioxide Level 28 MMOL/L (21-32) Anion Gap 10 mmol/L (5-15) Blood Urea Nitrogen 12 mg/dL (7-18) Creatinine 1.2 MG/DL (0.55-1.30) Estimat Glomerular Filtration Rate > 60 mL/min (>60) Glucose Level 113 MG/DL (74-106) H Calcium Level 9.0 MG/DL (8.5-10.1) Total Bilirubin 0.3 MG/DL (0.2-1.0) Aspartate Amino Transf (AST/SGOT) 34 U/L (15-37) Alanine Aminotransferase (ALT/SGPT) 74 U/L (12-78) Alkaline Phosphatase 58 U/L (46-116) Total Protein 7.5 G/DL (6.4-8.2) Albumin 2.8 G/DL (3.4-5.0) L Globulin 4.7 g/dL Albumin/Globulin Ratio 0.6 (1.0-2.7) L White Blood Count 14.2 K/UL (4.8-10.8) H Red Blood Count 4.62 M/UL (4.70-6.10) L Hemoglobin 13.1 G/DL (14.2-18.0) L Hematocrit 40.1 % (42.0-52.0) L Mean Corpuscular Volume 87 FL (80-99) Mean Corpuscular Hemoglobin 28.3 PG (27.0-31.0) Mean Corpuscular Hemoglobin Concent 32.6 G/DL (32.0-36.0) Red Cell Distribution Width 13.5 % (11.6-14.8) Platelet Count 520 K/UL (150-450) H Mean Platelet Volume 6.1 FL (6.5-10.1) L Neutrophils (%) (Auto) 74.9 % (45.0-75.0) Lymphocytes (%) (Auto) 14.8 % (20.0-45.0) L Monocytes (%) (Auto) 5.7 % (1.0-10.0) Eosinophils (%) (Auto) 3.6 % (0.0-3.0) H Basophils (%) (Auto) 1.0 % (0.0-2.0) Current Medications Medications (Trade) Dose Ordered Sig/Jeffy Route PRN Reason Start Time Stop Time Status Last Admin Dose Admin Acetaminophen (Tylenol) 650 mg Q4H PRN ORAL Mild Pain/Temp > 100.5 10/09/18 06:56 11/04/18 06:55 Clindamycin HCl/ Dextrose 50 ml @ 100 mls/hr Q6HR IV 10/09/18 12:00 10/15/18 11:59 10/13/18 12:03 Docosanol (Abreva) 1 gm FIVE TIMES A DAY TP 10/13/18 07:00 11/12/18 06:59 10/13/18 12:04 Doxycycline Monohydrate (Doxycycline Monohydrate) 100 mg EVERY 12 HOURS ORAL 10/09/18 09:00 10/14/18 15:03 10/13/18 08:48 Guaifenesin/ Dextromethorphan (Robitussin DM Syrup) 10 ml Q4H PRN ORAL For Cough 10/09/18 06:56 11/05/18 06:55 10/12/18 15:40 Heparin Sodium (Porcine) (Heparin 5000 units/ml) 5,000 units EVERY 12 HOURS SUBQ 10/09/18 09:00 11/05/18 08:59 10/13/18 08:49 Morphine Sulfate (Morphine Sulfate) 1 mg TID PRN IVP Severe Pain (Pain Scale 7-10) 10/11/18 08:45 10/18/18 08:44 10/13/18 01:41 Ondansetron HCl (Zofran) 4 mg Q6H PRN IVP Nausea & Vomiting 10/09/18 06:57 11/04/18 06:56 Oxycodone/ Acetaminophen (Percocet 10/325) 1 tab Q8H PRN ORAL MODERATE TO SEVERE PAIN 10/09/18 13:32 10/16/18 13:31 10/11/18 04:04 Piperacillin Sod/ Tazobactam Sod 4.5 gm/Sodium Chloride 110 ml @ 220 mls/hr Q6H IVPB 10/09/18 15:00 10/16/18 14:59 10/13/18 08:48 Promethazine HCl/ Codeine (Phenergan with Codeine) 5 ml Q4H PRN ORAL For Cough 10/09/18 07:00 11/06/18 14:59 Sodium Chloride 1,000 ml @ 100 mls/hr Q10H IV 10/09/18 07:00 11/04/18 06:59 10/13/18 12:05 Temazepam (Restoril) 30 mg HSPRN PRN ORAL Insomnia 10/09/18 21:30 10/13/18 21:28 10/10/18 22:40 Vancomycin HCl (Vanco rx to dose) 1 ea DAILY PRN MISC Per rx protocol 10/09/18 09:00 11/04/18 22:29 Vancomycin HCl/ Dextrose 275 ml @ 184 mls/hr Q8H IVPB 10/11/18 22:00 10/14/18 13:59 10/13/18 05:48 Ezio Rico MD Oct 13, 2018 13:28
[2018-10-13 16:00] VITALS: BP 120/67
--- NOTE | 2018-10-13 19:36 | NUR ---
HAND-OFF: Report given to Michel Holly pt in stable condition. incoming nurse is aware of patient's adverse reaction to medication. RN will monitor hives. I will f/u as needed.
[2018-10-13 20:00] VITALS: BP 142/87
--- NOTE | 2018-10-13 20:00 | NUR ---
NURSE NOTES: Patient in bed awake and oriented. VSS No SOB noted. Redness all over patients body. PRN benadryl given. 3/10 bilateral leg pain per patient. IV site intact. Needs attended. Due meds given. Call light within reach. Bed is locked and in low position. In stable condition.
[2018-10-14] VITALS: BP 140/83
[2018-10-14 05:00] VITALS: BP 131/87
--- NOTE | 2018-10-14 05:58 | NUR ---
NURSE NOTES: Patient still complaining of itching and redness all over the body. No SOB. No pain. Called Dr. Rainey with orders noted and carried out. TOMA'william PETER. PRN Benadryl given.
[2018-10-14] MEDS ORDERED: DiphenhydrAMINE 50mg/ml Inj IVP PRN (06:00)
[2018-10-14 06:32] LABS: BASOPHILS % (AUTO) 0.5 % (0.0-2.0); EOSINOPHILS % (AUTO) 4.2 % (0.0-3.0); HEMATOCRIT 44.1 % (42.0-52.0); HEMOGLOBIN 14.2 G/DL (14.2-18.0); MEAN CORPUSCULAR VOLUME 90 FL (80-99); MONOCYTES % (AUTO) 3.1 % (1.0-10.0); NEUTROPHILS % (AUTO) 81.2 % (45.0-75.0); PLATELET COUNT 366 K/UL (150-450); RED BLOOD COUNT 4.91 M/UL (4.70-6.10); RED CELL DISTRIBUTION WIDTH 14.2 % (11.6-14.8); WHITE BLOOD COUNT 13.7 K/UL (4.8-10.8)
--- NOTE | 2018-10-14 07:18 | NUR ---
NURSE NOTES: Received report from Michel Holly pt in stable condition. per report pt's still complaining of itchiness in his back due to previous adverse reaction. pt has redness, hives in the entire back and is warm to touch. bilateral leg edema and redness, warm to touch due to cellulites. IV on the right FA gauge#22 running NS @100ml/hr. pt is able to walk to the restroom with a FWW. call light within reach. bed in lowest position. side rales up x2. I will f/u as needed.
[2018-10-14 08:00] VITALS: BP 123/73
[2018-10-14] MEDS: Abreva 10% cream 2gm TP SCH ×5 (08:08→19:00)
[2018-10-14] MEDS: Heparin 5000 units/ml inj SUBQ SCH ×2 (08:10→20:31)
[2018-10-14] MEDS: Magic Mouth Wash 60ml (Benadryl/Mylanta/Visc Lido) ORAL SCH ×3 (09:00→17:43)
--- NOTE | 2018-10-14 09:26 | General Progress Note ---
Assessment/Plan Problem List: (1) Morbid obesity ICD Codes: E66.01 - Morbid (severe) obesity due to excess calories SNOMED: 347017609 (2) Tachycardia ICD Codes: R00.0 - Tachycardia, unspecified; R65.20 - Severe sepsis without septic shock SNOMED: 9163305 (3) Cellulitis, leg ICD Codes: L03.119 - Cellulitis of unspecified part of limb SNOMED: 162409034 (4) Severe sepsis ICD Codes: A41.9 - Sepsis, unspecified organism; R65.20 - Severe sepsis without septic shock SNOMED: 53657802 Status: stable Assessment/Plan: dc vanco po prednisone and iv benadryl h2 joo ID follow up mouth wash pain rx advanced dc planning when able to convert to po meds Subjective ROS Limited/Unobtainable: No Constitutional: Reports: malaise, weakness HEENT: Reports: no symptoms Cardiovascular: Reports: no symptoms Respiratory: Reports: no symptoms Gastrointestinal/Abdominal: Reports: no symptoms Genitourinary: Reports: no symptoms Neurologic/Psychiatric: Reports: no symptoms Endocrine: Reports: no symptoms Hematologic/Lymphatic: Reports: no symptoms Allergies: Coded Allergies: No Known Allergies (Unverified , 10/05/18) All Systems: reviewed and negative except above Subjective severe rash/hives. zosyn stopped yesterday. worse after getting vanco last night. Objective Last 24 Hour Vital Signs Date Time Temp Pulse Resp B/P (MAP) Pulse Ox O2 Delivery O2 Flow Rate FiO2 10/14/18 05:00 99.2 102 19 131/87 (102) 99 10/14/18 00:00 99.2 95 17 140/83 (102) 99 10/13/18 21:00 Room Air 10/13/18 20:00 99.6 91 18 142/87 (105) 100 10/13/18 16:00 98.1 94 18 120/67 (84) 98 10/13/18 12:00 98.1 96 18 117/67 (84) 98 Intake and Output 10/13/18 10/14/18 19:00 07:00 Intake Total 2700 ml 800 ml Output Total 1700 ml 1600 ml Balance 1000 ml -800 ml Intake Oral 1500 ml 800 ml IV Total 1200 ml Output Urine Total 1700 ml 1600 ml # Voids 6 # Bowel Movements 1 Laboratory Tests 10/14/18 05:35: White Blood Count 13.7H, Red Blood Count 4.91, Hemoglobin 14.2, Hematocrit 44.1 , Mean Corpuscular Volume 90, Mean Corpuscular Hemoglobin 28.9, Mean Corpuscular Hemoglobin Concent 32.2, Red Cell Distribution Width 14.2, Platelet Count 366, Mean Platelet Volume 5.4L, Neutrophils (%) (Auto) 81.2H, Lymphocytes (%) (Auto) 11.0L, Monocytes (%) (Auto) 3.1, Eosinophils (%) (Auto) 4.2H, Basophils (%) (Auto) 0.5 Height (Feet): 6 Height (Inches): 2.00 Weight (Pounds): 470 Objective General Appearance: WD/WN, alert Neck: supple Cardiovascular: regular rhythm Respiratory/Chest: normal breath sounds Abdomen: normal bowel sounds, non tender, soft, no organomegaly Edema: 3+ Leg (L), 3+ Leg (R) Skin: rash Stephon Rainey MD Oct 14, 2018 09:26
[2018-10-14 12:00] VITALS: BP 94/58
--- NOTE | 2018-10-14 12:36 | Diagnostic Imaging Report ---
Indication: Cough, shortness of breath Technique: One view of the chest Comparison: 10/05/2018 Findings: Body habitus limits evaluation. The heart size is upper limits normal. The pleural spaces are clear. No significant interim change Impression: No acute process
--- NOTE | 2018-10-14 13:03 | NUR ---
CASE MANAGEMENT:REVIEW 10/14/18 SI: SEPSIS. LLE CELLULITIS. LEUKOCYTOSIS NEW RASH ~ QUESTIONABLE ALLERGIC DRUG REACTION 98.8 100 18 94/58 97% ON RA IS: IV SOLUMEDROL Q8HRS (STARTED) IVF@100/HR IV BENADRYL Q6HRS HEPARIN SQ Q12 PERCOCET PO Q8HRS PRN : MED/SURG STATUS 3 EAST DCP: FROM HOME PLAN: DC ANTIBIOTICS AND START STEROIDS FOR RASH
[2018-10-14] MEDS: DiphenhydrAMINE 50mg/ml Inj IVP SCH ×2 (14:52→20:30)
[2018-10-14] MEDS: Solu-MEDROL 125mg Inj IVP SCH ×2 (14:52→22:00)
--- NOTE | 2018-10-14 15:16 | NUR ---
RADIOLOGY DEPT., CHEST X-RAY DONE.-P.DYE
[2018-10-14 16:00] VITALS: BP 153/86
--- NOTE | 2018-10-14 19:19 | NUR ---
HAND-OFF: Report given to Michel Holly patient in stable condition.
--- NOTE | 2018-10-14 19:41 | NUR ---
NURSE NOTES: Patient in bed awake and oriented. VSS. No SOB noted. Redness and itching still present throughout the body. No signs of distress noted. IV site intact and running IV fluids, tolerated well. Ambulated to the bathroom using a walker. Needs attended. Call light within reach. In stable condition.
[2018-10-14 20:00] VITALS: BP 117/70
[2018-10-15] VITALS: BP 129/66
[2018-10-15] MEDS: DiphenhydrAMINE 50mg/ml Inj IVP SCH ×4 (02:30→20:28)
[2018-10-15 04:00] VITALS: BP 118/64
[2018-10-15] MEDS: Abreva 10% cream 2gm TP SCH ×5 (05:26→19:50)
[2018-10-15] MEDS: Solu-MEDROL 125mg Inj IVP SCH ×3 (05:26→21:07)
[2018-10-15 06:51] LABS: MEAN CORPUSCULAR VOLUME 90 FL (80-99); PLATELET COUNT 654 K/UL (150-450); RED BLOOD COUNT 5.24 M/UL (4.70-6.10); RED CELL DISTRIBUTION WIDTH 14.3 % (11.6-14.8); WHITE BLOOD COUNT 19.1 K/UL (4.8-10.8)
[2018-10-15 08:15] VITALS: BP 134/74
--- NOTE | 2018-10-15 08:27 | General Progress Note ---
Assessment/Plan Problem List: (1) Morbid obesity ICD Codes: E66.01 - Morbid (severe) obesity due to excess calories SNOMED: 728108805 (2) Tachycardia ICD Codes: R00.0 - Tachycardia, unspecified; R65.20 - Severe sepsis without septic shock SNOMED: 4568303 (3) Cellulitis, leg ICD Codes: L03.119 - Cellulitis of unspecified part of limb SNOMED: 091625530 (4) Severe sepsis ICD Codes: A41.9 - Sepsis, unspecified organism; R65.20 - Severe sepsis without septic shock SNOMED: 96203364 Status: stable Assessment/Plan: dc vanco po prednisone and iv benadryl h2 joo ID follow up mouth wash pain rx advanced dc planning when able to convert to po meds Subjective Allergies: Coded Allergies: No Known Allergies (Unverified , 10/05/18) Subjective still with rash but improving. Objective Last 24 Hour Vital Signs Date Time Temp Pulse Resp B/P (MAP) Pulse Ox O2 Delivery O2 Flow Rate FiO2 10/15/18 08:15 98.2 104 19 134/74 (94) 99 10/15/18 04:00 98.2 106 16 118/64 (82) 96 10/15/18 00:00 98.5 100 20 129/66 (87) 96 10/14/18 21:00 Room Air 10/14/18 20:00 98.0 98 16 117/70 (86) 94 10/14/18 16:00 97.6 88 20 153/86 (108) 94 10/14/18 12:00 98.8 100 18 94/58 (70) 97 10/14/18 09:00 Room Air Intake and Output 10/14/18 10/15/18 19:00 07:00 Intake Total 1400 ml 1100 ml Output Total 800 ml 1100 ml Balance 600 ml 0 ml Intake Oral 300 ml IV Total 1100 ml 1100 ml Output Urine Total 800 ml 1100 ml Laboratory Tests 10/15/18 05:45: White Blood Count 19.1H, Red Blood Count 5.24, Hemoglobin 15.0, Hematocrit 47.0 , Mean Corpuscular Volume 90, Mean Corpuscular Hemoglobin 28.7, Mean Corpuscular Hemoglobin Concent 32.0, Red Cell Distribution Width 14.3, Platelet Count 654#H, Mean Platelet Volume 5.9L, Neutrophils (%) (Auto) , Lymphocytes (% ) (Auto) , Monocytes (%) (Auto) , Eosinophils (%) (Auto) , Basophils (%) (Auto) , Differential Total Cells Counted 100, Neutrophils % (Manual) 94H, Lymphocytes % (Manual) 4L, Monocytes % (Manual) 2, Eosinophils % (Manual) 0, Basophils % ( Manual) 0, Band Neutrophils 0, Platelet Estimate IncreasedH, Platelet Morphology Normal, Red Blood Cell Morphology Normal 10/15/18 08:05: Sodium Level [Pending], Potassium Level [Pending], Chloride Level [Pending], Carbon Dioxide Level [Pending], Blood Urea Nitrogen [Pending], Creatinine [ Pending], Estimat Glomerular Filtration Rate [Pending], Glucose Level [Pending] , Calcium Level [Pending], Total Bilirubin [Pending], Aspartate Amino Transf ( AST/SGOT) [Pending], Alanine Aminotransferase (ALT/SGPT) [Pending], Alkaline Phosphatase [Pending], Total Protein [Pending], Albumin [Pending], Globulin [ Pending] Height (Feet): 6 Height (Inches): 2.00 Weight (Pounds): 469 Objective General Appearance: WD/WN, alert Neck: supple Cardiovascular: regular rhythm Respiratory/Chest: normal breath sounds Abdomen: normal bowel sounds, non tender, soft, no organomegaly Edema: 3+ Leg (L), 3+ Leg (R) Skin: rash- diffuse but less Stephon Rainey MD Oct 15, 2018 08:27
[2018-10-15 08:37] LABS: ALANINE AMINOTRANSFERASE 43 U/L (12-78); ALBUMIN 2.6 G/DL (3.4-5.0); ALBUMIN/GLOBULIN RATIO 0.4 (1.0-2.7); ALKALINE PHOSPHATASE 64 U/L (46-116); ANION GAP 9 mmol/L (5-15); ASPARTATE AMINO TRANSFERASE 24 U/L (15-37); BILIRUBIN,TOTAL 0.1 MG/DL (0.2-1.0); BLOOD UREA NITROGEN 21 mg/dL (7-18); CALCIUM 9.3 MG/DL (8.5-10.1); CARBON DIOXIDE 25 MMOL/L (21-32); CHLORIDE 103 MMOL/L (98-107); POTASSIUM 4.6 MMOL/L (3.5-5.1); SODIUM 137 MMOL/L (136-145)
[2018-10-15] MEDS: Magic Mouth Wash 60ml (Benadryl/Mylanta/Visc Lido) ORAL SCH ×3 (08:41→17:38)
[2018-10-15] MEDS: Heparin 5000 units/ml inj SUBQ SCH ×2 (08:42→20:30)
--- NOTE | 2018-10-15 11:23 | Infectious Diseases Prog Note ---
Assessment/Plan Assessment/Plan antibiotics ; none A 1. left leg cellulitis improving 2. leucocytosis increased ? secondary to steroids 3. obesity 4. allergic reaction P 1. start po doxycycline 2. will follow up cultures Subjective Constitutional: Denies: fever, chills Respiratory: Denies: shortness of breath, dry cough Gastrointestinal/Abdominal: Denies: nausea, vomiting, diarrhea Skin: Reports: other - itching Musculoskeletal: Reports: pain - decreased Allergies: Coded Allergies: No Known Allergies (Unverified , 10/05/18) Objective Vital Signs Last 24 Hour Vital Signs Date Time Temp Pulse Resp B/P (MAP) Pulse Ox O2 Delivery O2 Flow Rate FiO2 10/15/18 09:00 Room Air 10/15/18 08:15 98.2 104 19 134/74 (94) 99 10/15/18 04:00 98.2 106 16 118/64 (82) 96 10/15/18 00:00 98.5 100 20 129/66 (87) 96 10/14/18 21:00 Room Air 10/14/18 20:00 98.0 98 16 117/70 (86) 94 10/14/18 16:00 97.6 88 20 153/86 (108) 94 10/14/18 12:00 98.8 100 18 94/58 (70) 97 Height (Feet): 6 Height (Inches): 2.00 Weight (Pounds): 469 Respiratory/Chest: lungs clear Cardiovascular: normal rate, regular rhythm, no gallop/murmur Abdomen: soft, non tender Extremities: other - + edema, left leg erythema decreased Skin: rash - erythematous rash on chest, arms, legs Laboratory Tests Test 10/15/18 05:45 10/15/18 08:05 White Blood Count 19.1 K/UL (4.8-10.8) H Red Blood Count 5.24 M/UL (4.70-6.10) Hemoglobin 15.0 G/DL (14.2-18.0) Hematocrit 47.0 % (42.0-52.0) Mean Corpuscular Volume 90 FL (80-99) Mean Corpuscular Hemoglobin 28.7 PG (27.0-31.0) Mean Corpuscular Hemoglobin Concent 32.0 G/DL (32.0-36.0) Red Cell Distribution Width 14.3 % (11.6-14.8) Platelet Count 654 K/UL (150-450) #H Mean Platelet Volume 5.9 FL (6.5-10.1) L Neutrophils (%) (Auto) % (45.0-75.0) Lymphocytes (%) (Auto) % (20.0-45.0) Monocytes (%) (Auto) % (1.0-10.0) Eosinophils (%) (Auto) % (0.0-3.0) Basophils (%) (Auto) % (0.0-2.0) Differential Total Cells Counted 100 Neutrophils % (Manual) 94 % (45-75) H Lymphocytes % (Manual) 4 % (20-45) L Monocytes % (Manual) 2 % (1-10) Eosinophils % (Manual) 0 % (0-3) Basophils % (Manual) 0 % (0-2) Band Neutrophils 0 % (0-8) Platelet Estimate Increased H Platelet Morphology Normal Red Blood Cell Morphology Normal Sodium Level 137 MMOL/L (136-145) Potassium Level 4.6 MMOL/L (3.5-5.1) Chloride Level 103 MMOL/L (98-107) Carbon Dioxide Level 25 MMOL/L (21-32) Anion Gap 9 mmol/L (5-15) Blood Urea Nitrogen 21 mg/dL (7-18) H Creatinine 2.0 MG/DL (0.55-1.30) H Estimat Glomerular Filtration Rate 38.7 mL/min (>60) Glucose Level 202 MG/DL (74-106) H Calcium Level 9.3 MG/DL (8.5-10.1) Total Bilirubin 0.1 MG/DL (0.2-1.0) L Aspartate Amino Transf (AST/SGOT) 24 U/L (15-37) Alanine Aminotransferase (ALT/SGPT) 43 U/L (12-78) Alkaline Phosphatase 64 U/L (46-116) Total Protein 8.4 G/DL (6.4-8.2) H Albumin 2.6 G/DL (3.4-5.0) L Globulin 5.8 g/dL Albumin/Globulin Ratio 0.4 (1.0-2.7) L Current Medications Medications (Trade) Dose Ordered Sig/Jeffy Route PRN Reason Start Time Stop Time Status Last Admin Dose Admin Acetaminophen (Tylenol) 650 mg Q4H PRN ORAL Mild Pain/Temp > 100.5 10/09/18 06:56 11/04/18 06:55 Diphenhydramine HCl (Benadryl) 50 mg Q6H IVP 10/14/18 14:30 11/13/18 14:29 10/15/18 08:41 Docosanol (Abreva) 1 gm FIVE TIMES A DAY TP 10/13/18 07:00 11/12/18 06:59 10/15/18 10:04 Famotidine (Pepcid) 20 mg BID ORAL 10/14/18 09:30 11/13/18 09:29 10/15/18 08:41 Guaifenesin/ Dextromethorphan (Robitussin DM Syrup) 10 ml Q4H PRN ORAL For Cough 10/09/18 06:56 11/05/18 06:55 10/12/18 15:40 Heparin Sodium (Porcine) (Heparin 5000 units/ml) 5,000 units EVERY 12 HOURS SUBQ 10/09/18 09:00 11/05/18 08:59 10/15/18 08:42 Methylprednisolone Sodium Succinate (Solu-MEDROL) 125 mg Q8HR IVP 10/14/18 14:00 11/13/18 13:59 10/15/18 05:26 Morphine Sulfate (Morphine Sulfate) 1 mg TID PRN IVP Severe Pain (Pain Scale 7-10) 10/11/18 08:45 10/18/18 08:44 10/13/18 01:41 Ondansetron HCl (Zofran) 4 mg Q6H PRN IVP Nausea & Vomiting 10/09/18 06:57 11/04/18 06:56 Oxycodone/ Acetaminophen (Percocet 10/325) 1 tab Q8H PRN ORAL MODERATE TO SEVERE PAIN 10/09/18 13:32 10/16/18 13:31 10/11/18 04:04 Promethazine HCl/ Codeine (Phenergan with Codeine) 5 ml Q4H PRN ORAL For Cough 10/09/18 07:00 11/06/18 14:59 Bradford Plata MD Oct 15, 2018 11:23
--- NOTE | 2018-10-15 11:30 | NUR ---
NURSE NOTES: received patient alert oriented with out no distress, generalized redness noted more visible on left leg chest, upper arm and back, patient also verbalized it itches, WBC increased MD aware new order received will continue to monitor.
--- NOTE | 2018-10-15 12:29 | NUR ---
CASE MANAGEMENT:REVIEW 10/15/18 SI: SEPSIS. LLE CELLULITIS. LEUKOCYTOSIS NEW RASH ~ QUESTIONABLE ALLERGIC DRUG REACTION 98.2 104 19 134/74 99% ON RA WBC+19.1 CR+2.0 IS: IV SOLUMEDROL 125MG Q8HRS DOXYCYCLINE PO Q12 IV BENADRYL Q6HRS HEPARIN SQ Q12 ABREVA TP 5X/DAY PERCOCET PO Q8HRS PRN : MED/SURG STATUS 3 EAST DCP: FROM HOME PLAN: DC ANTIBIOTICS AND START STEROIDS FOR RASH
[2018-10-15 12:45] VITALS: BP 106/71
[2018-10-15 16:06] VITALS: BP 114/88
--- NOTE | 2018-10-15 19:14 | NUR ---
HAND-OFF: Report given to HOLLY Welch patient stable condition with out no distress, the redness and rashes decreasing call light with in reach, bed on low position locked.
--- NOTE | 2018-10-15 19:30 | NUR ---
NURSE NOTES: Received report & pt from HOLLY Eisenberg. Pt lying in bed, a&ox4, in room air, family members at bedside. No s/s of acute distress & no c/o pain at this time. Noted B/L legs edematous, cellulitis on left leg & generalized redness/itching. IV site intact & S/L'd/ Bed in lowest position, call light within reach. Will continue to monitor.
[2018-10-15] MEDS ORDERED: NS Irrig 1000ml ONE (19:32)
[2018-10-15] MEDS ORDERED: Tubing IV Secondary IV ONE (19:32)
[2018-10-15 20:00] VITALS: BP 157/66
[2018-10-16] VITALS (7 sets, daily range): BP systolic 120–160; BP diastolic 65–89
[2018-10-16] MEDS: DiphenhydrAMINE 50mg/ml Inj IVP SCH ×4 (02:25→20:44)
[2018-10-16] MEDS: Solu-MEDROL 125mg Inj IVP SCH ×2 (06:18→13:13)
[2018-10-16] MEDS: Abreva 10% cream 2gm TP SCH ×5 (06:18→18:02)
--- NOTE | 2018-10-16 07:30 | NUR ---
NURSE NOTES: Patient is in bed awake and able to verbalize needs. Patient is stable. Denies pain or SOB. Patient encouraged to use call light for assistance, verbalize understanding. Patient is in bed in locked and lowest position with call light within reach. Will continue to monitor.
--- NOTE | 2018-10-16 07:37 | NUR ---
HAND-OFF: Report given to HOLLY Brantley. Rounds done. Pt in stable condition.
[2018-10-16] MEDS: Magic Mouth Wash 60ml (Benadryl/Mylanta/Visc Lido) ORAL SCH (09:00)
[2018-10-16] MEDS: Heparin 5000 units/ml inj SUBQ SCH ×2 (09:07→20:47)
--- NOTE | 2018-10-16 11:49 | Infectious Diseases Prog Note ---
Assessment/Plan Assessment/Plan A 1. left leg cellulitis improving 2. leucocytosis 3. obesity 4. New rash, ? allergic drug reaction 5. Seborrheic dermatitis 6. Herpes simplex of lips P 1. continue Doxycycline Subjective ROS Limited/Unobtainable: No Constitutional: Reports: no symptoms, other - feels better Respiratory: Reports: productive cough Cardiovascular: Reports: no symptoms Gastrointestinal/Abdominal: Reports: no symptoms Musculoskeletal: Reports: pain, other - in left leg with walking Allergies: Coded Allergies: No Known Allergies (Unverified , 10/05/18) Objective Vital Signs Last 24 Hour Vital Signs Date Time Temp Pulse Resp B/P (MAP) Pulse Ox O2 Delivery O2 Flow Rate FiO2 10/16/18 09:00 Room Air 10/16/18 08:00 98.1 85 19 149/80 (103) 98 10/16/18 04:38 97.4 79 16 128/65 (86) 97 10/16/18 01:30 95 137/69 (91) 10/16/18 00:28 97.2 90 16 160/88 (112) 97 10/15/18 21:00 Room Air 10/15/18 20:00 98.1 98 18 157/66 (96) 94 10/15/18 16:06 98.2 81 19 114/88 (97) 99 10/15/18 12:45 99.1 87 19 106/71 (83) 96 Height (Feet): 6 Height (Inches): 2.00 Weight (Pounds): 469 General Appearance: no acute distress HEENT: mucous membranes moist Respiratory/Chest: lungs clear Cardiovascular: normal rate Abdomen: soft, non tender Extremities: other - edema of left leg Skin: rash, other - resolving Neurologic/Psychiatric: alert, oriented x 3, responsive Current Medications Medications (Trade) Dose Ordered Sig/Jeffy Route PRN Reason Start Time Stop Time Status Last Admin Dose Admin Acetaminophen (Tylenol) 650 mg Q4H PRN ORAL Mild Pain/Temp > 100.5 10/09/18 06:56 11/04/18 06:55 Diphenhydramine HCl (Benadryl) 50 mg Q6H IVP 10/14/18 14:30 11/13/18 14:29 10/16/18 09:05 Docosanol (Abreva) 1 gm FIVE TIMES A DAY TP 10/13/18 07:00 11/12/18 06:59 10/16/18 09:04 Doxycycline Monohydrate (Doxycycline Monohydrate) 100 mg EVERY 12 HOURS ORAL 10/15/18 12:00 10/22/18 11:59 10/16/18 09:05 Famotidine (Pepcid) 20 mg BID ORAL 10/14/18 09:30 11/13/18 09:29 10/16/18 09:05 Guaifenesin/ Dextromethorphan (Robitussin DM Syrup) 10 ml Q4H PRN ORAL For Cough 10/09/18 06:56 11/05/18 06:55 10/12/18 15:40 Heparin Sodium (Porcine) (Heparin 5000 units/ml) 5,000 units EVERY 12 HOURS SUBQ 10/09/18 09:00 11/05/18 08:59 10/16/18 09:07 Methylprednisolone Sodium Succinate (Solu-MEDROL) 125 mg Q8HR IVP 10/14/18 14:00 11/13/18 13:59 10/16/18 06:18 Morphine Sulfate (Morphine Sulfate) 1 mg TID PRN IVP Severe Pain (Pain Scale 7-10) 10/11/18 08:45 10/18/18 08:44 10/13/18 01:41 Ondansetron HCl (Zofran) 4 mg Q6H PRN IVP Nausea & Vomiting 10/09/18 06:57 11/04/18 06:56 Oxycodone/ Acetaminophen (Percocet 10/325) 1 tab Q8H PRN ORAL MODERATE TO SEVERE PAIN 10/09/18 13:32 10/16/18 13:31 10/11/18 04:04 Promethazine HCl/ Codeine (Phenergan with Codeine) 5 ml Q4H PRN ORAL For Cough 10/09/18 07:00 11/06/18 14:59 Ezio Rico MD Oct 16, 2018 11:48
--- NOTE | 2018-10-16 14:41 | NUR ---
CASE MANAGEMENT:REVIEW 10/16/18 SI: SEPSIS. LLE CELLULITIS. LEUKOCYTOSIS RASH D/T ALLERGIC DRUG REACTION 98.1 79 20 120/73 96% ON RA IS: IV SOLUMEDROL 125MG Q8HRS DOXYCYCLINE PO Q12 IV BENADRYL Q6HRS HEPARIN SQ Q12 ABREVA TP 5X/DAY PERCOCET PO Q8HRS PRN : MED/SURG STATUS 3 EAST DCP: FROM HOME
--- NOTE | 2018-10-16 19:23 | General Progress Note ---
Assessment/Plan Problem List: (1) Morbid obesity ICD Codes: E66.01 - Morbid (severe) obesity due to excess calories SNOMED: 968154124 (2) Tachycardia ICD Codes: R00.0 - Tachycardia, unspecified; R65.20 - Severe sepsis without septic shock SNOMED: 7854045 (3) Cellulitis, leg ICD Codes: L03.119 - Cellulitis of unspecified part of limb SNOMED: 789571318 (4) Severe sepsis ICD Codes: A41.9 - Sepsis, unspecified organism; R65.20 - Severe sepsis without septic shock SNOMED: 55445877 Status: stable Assessment/Plan: steroids iv benadryl h2 joo ID follow up mouth wash pain rx advanced ivf repeat labs dc planning when able to convert to po meds Subjective ROS Limited/Unobtainable: No Constitutional: Reports: malaise, weakness HEENT: Reports: no symptoms Cardiovascular: Reports: no symptoms Respiratory: Reports: no symptoms Gastrointestinal/Abdominal: Reports: no symptoms Genitourinary: Reports: no symptoms Neurologic/Psychiatric: Reports: no symptoms Endocrine: Reports: no symptoms Hematologic/Lymphatic: Reports: no symptoms Allergies: Coded Allergies: No Known Allergies (Unverified , 10/05/18) Subjective still with rash but improving. renal fxn up yesterday. no complaints. Objective Last 24 Hour Vital Signs Date Time Temp Pulse Resp B/P (MAP) Pulse Ox O2 Delivery O2 Flow Rate FiO2 10/16/18 16:00 98.1 79 20 120/73 (89) 96 10/16/18 12:00 98.1 79 20 120/73 (89) 96 10/16/18 09:00 Room Air 10/16/18 08:00 98.1 85 19 149/80 (103) 98 10/16/18 04:38 97.4 79 16 128/65 (86) 97 10/16/18 01:30 95 137/69 (91) 10/16/18 00:28 97.2 90 16 160/88 (112) 97 10/15/18 21:00 Room Air 10/15/18 20:00 98.1 98 18 157/66 (96) 94 Intake and Output 10/15/18 10/16/18 19:00 07:00 Intake Total 716 ml 1400 ml Output Total 800 ml 800 ml Balance -84 ml 600 ml Intake Oral 716 ml 1400 ml Output Urine Total 800 ml 800 ml # Voids 1 # Bowel Movements 1 Height (Feet): 6 Height (Inches): 2.00 Weight (Pounds): 469 Objective General Appearance: WD/WN, alert Neck: supple Cardiovascular: regular rhythm Respiratory/Chest: normal breath sounds Abdomen: normal bowel sounds, non tender, soft, no organomegaly Edema: 3+ Leg (L), 3+ Leg (R) Skin: rash- diffuse but less Stephon Rainey MD Oct 16, 2018 19:23
--- NOTE | 2018-10-16 19:35 | NUR ---
HAND-OFF: Report given to Loli RN. Patient is stable.
--- NOTE | 2018-10-16 19:40 | NUR ---
NURSE NOTES: RECEIVED PT FROM HOLLY NUNES. PT IS AWAKE, AAOX4, ON ROOM AIR, NO ACUTE DISTRESS NOTED. DENIES SOB, DENIES PAIN AT THE MOMENT. FAMILY MEMBER AT BED SIDE. IV NOTED ON THE LEFT HAND 24G, INTACT AND PATENT. BED IS LOCKED AT THE LOWEST POSITION, BED ALARMS ACTIVE, SIDE RAILS UP X2 AND CALL LIGHT IS WITHIN REACH. WILL CONTINUE TO MONITOR.
[2018-10-16 20:43] LABS: ANION GAP 8 mmol/L (5-15); BLOOD UREA NITROGEN 31 mg/dL (7-18); CALCIUM 9.1 MG/DL (8.5-10.1); CARBON DIOXIDE 25 MMOL/L (21-32); CHLORIDE 106 MMOL/L (98-107); CREATININE 1.7 MG/DL (0.55-1.30); POTASSIUM 4.1 MMOL/L (3.5-5.1); SODIUM 139 MMOL/L (136-145)
[2018-10-17] VITALS: BP 144/86
[2018-10-17] MEDS: DiphenhydrAMINE 50mg/ml Inj IVP SCH ×4 (02:34→21:29)
[2018-10-17 04:00] VITALS: BP 147/104
[2018-10-17] MEDS: Abreva 10% cream 2gm TP SCH ×5 (06:50→19:00)
[2018-10-17 07:06] LABS: ANION GAP 9 mmol/L (5-15); BLOOD UREA NITROGEN 34 mg/dL (7-18); CALCIUM 9.2 MG/DL (8.5-10.1); CARBON DIOXIDE 28 MMOL/L (21-32); CHLORIDE 104 MMOL/L (98-107); CREATININE 1.7 MG/DL (0.55-1.30); POTASSIUM 4.4 MMOL/L (3.5-5.1); SODIUM 141 MMOL/L (136-145)
--- NOTE | 2018-10-17 07:30 | NUR ---
NURSE NOTES: Patient is in bed awake and able to verbalize needs. Stable. Denies pain or SOB. Patient is encouraged to use call light for assistance, verbalized understanding. Patient is in bed in locked and lowest position with call light within reach. IV fluids running as ordered. Will continue to monitor.
--- NOTE | 2018-10-17 07:38 | NUR ---
HAND-OFF: Report given to HOLLY Brantley.
[2018-10-17 08:00] VITALS: BP 155/94
[2018-10-17] MEDS: Heparin 5000 units/ml inj SUBQ SCH ×2 (08:36→21:27)
[2018-10-17] MEDS ORDERED: Solu-MEDROL 125mg Inj IVP SCH (09:00)
--- NOTE | 2018-10-17 09:44 | General Progress Note ---
Assessment/Plan Problem List: (1) Morbid obesity ICD Codes: E66.01 - Morbid (severe) obesity due to excess calories SNOMED: 123005397 (2) Tachycardia ICD Codes: R00.0 - Tachycardia, unspecified; R65.20 - Severe sepsis without septic shock SNOMED: 0074697 (3) Cellulitis, leg ICD Codes: L03.119 - Cellulitis of unspecified part of limb SNOMED: 278802556 (4) Severe sepsis ICD Codes: A41.9 - Sepsis, unspecified organism; R65.20 - Severe sepsis without septic shock SNOMED: 14819626 Status: stable Assessment/Plan: steroids iv benadryl h2 joo ID follow up mouth wash pain rx advanced ivf repeat labs check renal us dc planning when renal fxn better Subjective ROS Limited/Unobtainable: No Constitutional: Reports: malaise, weakness HEENT: Reports: no symptoms Cardiovascular: Reports: no symptoms Respiratory: Reports: no symptoms Gastrointestinal/Abdominal: Reports: no symptoms Genitourinary: Reports: no symptoms Neurologic/Psychiatric: Reports: no symptoms Endocrine: Reports: no symptoms Hematologic/Lymphatic: Reports: no symptoms Allergies: Coded Allergies: No Known Allergies (Unverified , 10/05/18) All Systems: reviewed and negative except above Subjective rash decreasing. renal fxn not better Objective Last 24 Hour Vital Signs Date Time Temp Pulse Resp B/P (MAP) Pulse Ox O2 Delivery O2 Flow Rate FiO2 10/17/18 04:00 97.5 85 18 147/104 (118) 97 10/17/18 00:00 97.2 77 17 144/86 (105) 94 10/16/18 21:00 Room Air 10/16/18 20:00 97.5 81 17 152/89 (110) 98 10/16/18 16:00 98.1 79 20 120/73 (89) 96 10/16/18 12:00 98.1 79 20 120/73 (89) 96 Intake and Output 10/16/18 10/17/18 19:00 07:00 Intake Total 960 ml 1000 ml Balance 960 ml 1000 ml Intake Oral 960 ml IV Total 1000 ml # Voids 1 1 # Bowel Movements 1 Laboratory Tests 10/16/18 20:10: Sodium Level 139, Potassium Level 4.1, Chloride Level 106, Carbon Dioxide Level 25, Anion Gap 8, Blood Urea Nitrogen 31H, Creatinine 1.7H, Estimat Glomerular Filtration Rate 46.6, Glucose Level 196H, Calcium Level 9.1 10/17/18 04:55: Sodium Level 141, Potassium Level 4.4, Chloride Level 104, Carbon Dioxide Level 28, Anion Gap 9, Blood Urea Nitrogen 34H, Creatinine 1.7H, Estimat Glomerular Filtration Rate 46.6, Glucose Level 96#, Calcium Level 9.2 Height (Feet): 6 Height (Inches): 2.00 Weight (Pounds): 469 Objective General Appearance: WD/WN, alert Neck: supple Cardiovascular: regular rhythm Respiratory/Chest: normal breath sounds Abdomen: normal bowel sounds, non tender, soft, no organomegaly Edema: 3+ Leg (L), 3+ Leg (R) Skin: rash- diffuse but less Stephon Rainey MD Oct 17, 2018 09:44
--- NOTE | 2018-10-17 10:32 | Infectious Diseases Prog Note ---
Assessment/Plan Assessment/Plan antibiotics ; doxycycline A 1. left leg cellulitis improving 2. leucocytosis increased ? secondary to steroids 3. obesity 4. allergic reaction improving P 1. continue po doxycycline 8 more days 2. will follow up cultures Subjective Constitutional: Denies: fever, chills Respiratory: Denies: shortness of breath, dry cough Gastrointestinal/Abdominal: Denies: nausea, vomiting, diarrhea Musculoskeletal: Reports: pain - decreased Allergies: Coded Allergies: No Known Allergies (Unverified , 10/05/18) Objective Vital Signs Last 24 Hour Vital Signs Date Time Temp Pulse Resp B/P (MAP) Pulse Ox O2 Delivery O2 Flow Rate FiO2 10/17/18 04:00 97.5 85 18 147/104 (118) 97 10/17/18 00:00 97.2 77 17 144/86 (105) 94 10/16/18 21:00 Room Air 10/16/18 20:00 97.5 81 17 152/89 (110) 98 10/16/18 16:00 98.1 79 20 120/73 (89) 96 10/16/18 12:00 98.1 79 20 120/73 (89) 96 Height (Feet): 6 Height (Inches): 2.00 Weight (Pounds): 469 Respiratory/Chest: lungs clear Cardiovascular: normal rate, regular rhythm, no gallop/murmur Abdomen: soft, non tender Extremities: other - + edema, left leg erythema decreased Skin: rash - decreased Laboratory Tests Test 10/16/18 20:10 10/17/18 04:55 Sodium Level 139 MMOL/L (136-145) 141 MMOL/L (136-145) Potassium Level 4.1 MMOL/L (3.5-5.1) 4.4 MMOL/L (3.5-5.1) Chloride Level 106 MMOL/L (98-107) 104 MMOL/L (98-107) Carbon Dioxide Level 25 MMOL/L (21-32) 28 MMOL/L (21-32) Anion Gap 8 mmol/L (5-15) 9 mmol/L (5-15) Blood Urea Nitrogen 31 mg/dL (7-18) H 34 mg/dL (7-18) H Creatinine 1.7 MG/DL (0.55-1.30) H 1.7 MG/DL (0.55-1.30) H Estimat Glomerular Filtration Rate 46.6 mL/min (>60) 46.6 mL/min (>60) Glucose Level 196 MG/DL (74-106) H 96 MG/DL (74-106) # Calcium Level 9.1 MG/DL (8.5-10.1) 9.2 MG/DL (8.5-10.1) Current Medications Medications (Trade) Dose Ordered Sig/Jeffy Route PRN Reason Start Time Stop Time Status Last Admin Dose Admin Acetaminophen (Tylenol) 650 mg Q4H PRN ORAL Mild Pain/Temp > 100.5 10/09/18 06:56 11/04/18 06:55 Diphenhydramine HCl (Benadryl) 50 mg Q6H IVP 10/14/18 14:30 11/13/18 14:29 10/17/18 08:34 Docosanol (Abreva) 1 gm FIVE TIMES A DAY TP 10/13/18 07:00 11/12/18 06:59 10/17/18 06:50 Doxycycline Monohydrate (Doxycycline Monohydrate) 100 mg EVERY 12 HOURS ORAL 10/15/18 12:00 10/22/18 11:59 10/17/18 08:35 Famotidine (Pepcid) 20 mg BID ORAL 10/14/18 09:30 11/13/18 09:29 10/17/18 08:35 Guaifenesin/ Dextromethorphan (Robitussin DM Syrup) 10 ml Q4H PRN ORAL For Cough 10/09/18 06:56 11/05/18 06:55 10/12/18 15:40 Heparin Sodium (Porcine) (Heparin 5000 units/ml) 5,000 units EVERY 12 HOURS SUBQ 10/09/18 09:00 11/05/18 08:59 10/17/18 08:36 Morphine Sulfate (Morphine Sulfate) 1 mg TID PRN IVP Severe Pain (Pain Scale 7-10) 10/11/18 08:45 10/18/18 08:44 10/13/18 01:41 Ondansetron HCl (Zofran) 4 mg Q6H PRN IVP Nausea & Vomiting 10/09/18 06:57 11/04/18 06:56 Prednisone (predniSONE) 30 mg DAILY ORAL 10/18/18 09:00 11/17/18 08:59 Promethazine HCl/ Codeine (Phenergan with Codeine) 5 ml Q4H PRN ORAL For Cough 10/09/18 07:00 11/06/18 14:59 Sodium Chloride 1,000 ml @ 100 mls/hr Q10H IV 10/16/18 19:30 11/15/18 19:29 10/17/18 05:36 Bradford Plata MD Oct 17, 2018 10:32
--- NOTE | 2018-10-17 11:08 | Diagnostic Imaging Report ---
Indication:Elevated Bun and Creatinine. Technique: Grayscale and duplex Doppler imaging of the kidneys performed. Comparison: None Findings: The size, contour, and echogenicity of both kidneys are within normal limits though poorly visualized in general. There is no obvious hydronephrosis. The IVC and urinary bladder are unremarkable. Right kidney 12.2 cm in length. Left kidney 12.1 cm in length. The liver is echogenic consistent with fatty infiltration. IMPRESSION: Negative exam with limitations. Fatty liver
[2018-10-17 12:00] VITALS: BP 159/102
--- NOTE | 2018-10-17 12:54 | NUR ---
RD ASSESSMENT & RECOMMENDATIONS SEE CARE ACTIVITY FOR COMPLETE ASSESSMENT DAILY ESTIMATED NEEDS: Needs based on Morbid obesity/ 120kg abw 15-18 kcals/kg 3168-3514 total kcals 1-1.3 g protein/kg 120-156 g total protein 20-25 mL/kg 1876-3585 total fluid mLs NUTRITION DIAGNOSIS: Morbid obesity R/T life style factors, excessive energy intake FIELD STAFF as evidenced by BMI > 60. (CURRENT DIET: CARDIAC) PO DIET RECOMMENDATIONS--->>> CARDIAC + consider adding CCHO MED for calorie control ------ ADDITIONAL RECOMMENDATIONS: * Standing wt for accurate CBW * Re-attempt diet ed as able -> diet ed on healthy wt loss attempted 10/10, pt not receptive * Weekly wts-> standing preferred if able * NISS while on steroidal meds for glycemic control
--- NOTE | 2018-10-17 13:00 | NUR ---
NURSE NOTES: Paged Dr. Rainey for blood pressure 159/102. Received new orders for norvasc 5mg daily. Patient made aware. Patient verbalized that he does not feel comfortable taking medication for blood pressure and will tell RN if he changes his mind. RN gave patient medication teaching and gave patient printed information about amlodipine.
--- NOTE | 2018-10-17 14:06 | NUR ---
CASE MANAGEMENT:REVIEW 10/17/18 SI: SEPSIS. LLE CELLULITIS. LEUKOCYTOSIS RASH D/T ALLERGIC DRUG REACTION 97.5 78 20 159/102 95% ON RA BUN+34 CR+1.7 IS: PREDNISONE 30MG PO QD DOXYCYCLINE PO Q12 NORVASC PO QD IVF@100/HR IV BENADRYL Q6 PEPCID PO BID ABREVA 5X'S PER DAY : MED/SURG STATUS 3 EAST DCP: FROM HOME
--- NOTE | 2018-10-17 14:30 | NUR ---
NURSE NOTES: IV is infiltrated. Attempted reinsertion, unsuccessful. Will attempt to reinsert again. Benadryl not administered at this time due to no IV access.
[2018-10-17 16:00] VITALS: BP 146/93
--- NOTE | 2018-10-17 19:30 | NUR ---
HAND-OFF: Report given to Loly BARRERA. Patient is stable.
[2018-10-17 20:00] VITALS: BP 139/89
--- NOTE | 2018-10-17 20:37 | NUR ---
NURSE NOTES: Pt received in bed, alert able to make needs known, call light within reach, no c/o pain or signs of distress, IV fluids running, will continue to monitor.
[2018-10-18] VITALS: BP 136/88
[2018-10-18] MEDS: DiphenhydrAMINE 50mg/ml Inj IVP SCH ×4 (02:42→20:30)
--- NOTE | 2018-10-18 02:50 | NUR ---
HAND-OFF: Report given to HOLLY Welch. pt stable
--- NOTE | 2018-10-18 02:51 | NUR ---
NURSE NOTES: Received report & pt from HOLLY Salcido for continuity of care. Pt lying in bed, a&ox4, in room air. No s/s of acute distress & no c/o pain at this time. Noted B/L legs edematous, cellulitis on B/L legs & generalized redness/itching. IV site intact with IVF running as ordered. Bed in lowest position, call light within reach. Will continue to monitor.
[2018-10-18 04:00] VITALS: BP 148/93
[2018-10-18] MEDS: Abreva 10% cream 2gm TP SCH ×5 (06:22→19:14)
--- NOTE | 2018-10-18 07:30 | NUR ---
HAND-OFF: Report given to HOLLY Acosta. Pt in stable condition. Rounds done.
--- NOTE | 2018-10-18 07:38 | NUR ---
NURSE NOTES: AWAKE/ALERT. NO C/O PAIN. BLE EDEMA. IN NO DISTRESS.
[2018-10-18 08:00] VITALS: BP 138/86
--- NOTE | 2018-10-18 08:29 | General Progress Note ---
Assessment/Plan Problem List: (1) Morbid obesity ICD Codes: E66.01 - Morbid (severe) obesity due to excess calories SNOMED: 424059204 (2) Tachycardia ICD Codes: R00.0 - Tachycardia, unspecified; R65.20 - Severe sepsis without septic shock SNOMED: 9862088 (3) Cellulitis, leg ICD Codes: L03.119 - Cellulitis of unspecified part of limb SNOMED: 068916740 (4) Severe sepsis ICD Codes: A41.9 - Sepsis, unspecified organism; R65.20 - Severe sepsis without septic shock SNOMED: 06973079 Status: stable Assessment/Plan: steroids- dc iv benadryl h2 joo ID follow up mouth wash pain rx advanced ivf repeat labs check renal us dc planning when renal fxn better Subjective ROS Limited/Unobtainable: No Constitutional: Reports: malaise, weakness HEENT: Reports: no symptoms Cardiovascular: Reports: no symptoms Respiratory: Reports: no symptoms Gastrointestinal/Abdominal: Reports: no symptoms Genitourinary: Reports: no symptoms Neurologic/Psychiatric: Reports: no symptoms Endocrine: Reports: no symptoms Hematologic/Lymphatic: Reports: no symptoms Allergies: Coded Allergies: No Known Allergies (Unverified , 10/05/18) All Systems: reviewed and negative except above Subjective rash decreasing. renal fxn pending for today Objective Last 24 Hour Vital Signs Date Time Temp Pulse Resp B/P (MAP) Pulse Ox O2 Delivery O2 Flow Rate FiO2 10/18/18 04:00 97.5 61 18 148/93 (111) 97 10/18/18 00:00 98.1 69 19 136/88 (104) 97 10/17/18 21:00 Room Air 10/17/18 20:00 97.7 76 18 139/89 (106) 95 10/17/18 16:00 97.6 79 20 146/93 (110) 95 10/17/18 12:00 97.5 78 20 159/102 (121) 95 10/17/18 09:00 Room Air Intake and Output 10/17/18 10/18/18 18:59 06:59 Intake Total 960 ml 1100 ml Output Total 1250 ml Balance 960 ml -150 ml Intake Oral 960 ml IV Total 1100 ml Output Urine Total 1250 ml # Voids 2 Height (Feet): 6 Height (Inches): 2.00 Weight (Pounds): 469 Objective General Appearance: WD/WN, alert Neck: supple Cardiovascular: regular rhythm Respiratory/Chest: normal breath sounds Abdomen: normal bowel sounds, non tender, soft, no organomegaly Edema: 3+ Leg (L), 3+ Leg (R) Skin: rash- diffuse but less Stephon Rainey MD Oct 18, 2018 08:29
[2018-10-18] MEDS: Heparin 5000 units/ml inj SUBQ SCH ×2 (08:33→20:38)
[2018-10-18 09:10] LABS: ANION GAP 8 mmol/L (5-15); BLOOD UREA NITROGEN 40 mg/dL (7-18); CARBON DIOXIDE 26 MMOL/L (21-32); CHLORIDE 108 MMOL/L (98-107); CREATININE 1.8 MG/DL (0.55-1.30); POTASSIUM 4.4 MMOL/L (3.5-5.1); SODIUM 142 MMOL/L (136-145)
--- NOTE | 2018-10-18 10:28 | Infectious Diseases Prog Note ---
Assessment/Plan Assessment/Plan A 1. left leg cellulitis improving 2. leucocytosis 3. obesity 4. New rash, ? allergic drug reaction 5. Seborrheic dermatitis 6. Herpes simplex of lips P 1. continue Doxycycline 2. f/u CBC Subjective ROS Limited/Unobtainable: No Constitutional: Reports: no symptoms HEENT: Reports: no symptoms Genitourinary: Reports: no symptoms Musculoskeletal: Reports: no symptoms Allergies: Coded Allergies: No Known Allergies (Unverified , 10/05/18) Objective Vital Signs Last 24 Hour Vital Signs Date Time Temp Pulse Resp B/P (MAP) Pulse Ox O2 Delivery O2 Flow Rate FiO2 10/18/18 09:16 Room Air 10/18/18 08:35 79 138/86 10/18/18 08:00 97.2 79 18 138/86 (103) 96 10/18/18 04:00 97.5 61 18 148/93 (111) 97 10/18/18 00:00 98.1 69 19 136/88 (104) 97 10/17/18 21:00 Room Air 10/17/18 20:00 97.7 76 18 139/89 (106) 95 10/17/18 16:00 97.6 79 20 146/93 (110) 95 10/17/18 12:00 97.5 78 20 159/102 (121) 95 Height (Feet): 6 Height (Inches): 2.00 Weight (Pounds): 469 HEENT: mucous membranes moist Respiratory/Chest: lungs clear Cardiovascular: normal rate Abdomen: soft, non tender Extremities: other - edema of R leg Skin: other - erythema of both legs more in left Neurologic/Psychiatric: alert, oriented x 3, responsive Laboratory Tests Test 10/18/18 08:30 Sodium Level 142 MMOL/L (136-145) Potassium Level 4.4 MMOL/L (3.5-5.1) Chloride Level 108 MMOL/L (98-107) H Carbon Dioxide Level 26 MMOL/L (21-32) Anion Gap 8 mmol/L (5-15) Blood Urea Nitrogen 40 mg/dL (7-18) H Creatinine 1.8 MG/DL (0.55-1.30) H Estimat Glomerular Filtration Rate 43.7 mL/min (>60) Glucose Level 92 MG/DL (74-106) Calcium Level 9.0 MG/DL (8.5-10.1) Current Medications Medications (Trade) Dose Ordered Sig/Jeffy Route PRN Reason Start Time Stop Time Status Last Admin Dose Admin Acetaminophen (Tylenol) 650 mg Q4H PRN ORAL Mild Pain/Temp > 100.5 10/09/18 06:56 11/04/18 06:55 Amlodipine Besylate (Norvasc) 5 mg DAILY ORAL 10/17/18 12:15 11/16/18 12:14 Diphenhydramine HCl (Benadryl) 50 mg Q6H IVP 10/14/18 14:30 11/13/18 14:29 10/18/18 08:34 Docosanol (Abreva) 1 gm FIVE TIMES A DAY TP 10/13/18 07:00 11/12/18 06:59 10/18/18 10:21 Doxycycline Monohydrate (Doxycycline Monohydrate) 100 mg EVERY 12 HOURS ORAL 10/15/18 12:00 10/22/18 11:59 10/18/18 08:34 Famotidine (Pepcid) 20 mg BID ORAL 10/14/18 09:30 11/13/18 09:29 10/18/18 08:33 Guaifenesin/ Dextromethorphan (Robitussin DM Syrup) 10 ml Q4H PRN ORAL For Cough 10/09/18 06:56 11/05/18 06:55 10/12/18 15:40 Heparin Sodium (Porcine) (Heparin 5000 units/ml) 5,000 units EVERY 12 HOURS SUBQ 10/09/18 09:00 11/05/18 08:59 10/18/18 08:33 Ondansetron HCl (Zofran) 4 mg Q6H PRN IVP Nausea & Vomiting 10/09/18 06:57 11/04/18 06:56 Promethazine HCl/ Codeine (Phenergan with Codeine) 5 ml Q4H PRN ORAL For Cough 10/09/18 07:00 11/06/18 14:59 Sodium Chloride 1,000 ml @ 100 mls/hr Q10H IV 10/16/18 19:30 11/15/18 19:29 10/18/18 02:40 Ezio Rico MD Oct 18, 2018 10:28
[2018-10-18 12:00] VITALS: BP 146/86
--- NOTE | 2018-10-18 14:04 | NUR ---
CASE MANAGEMENT:REVIEW 10/18/18 SI: SEPSIS. LLE CELLULITIS. LEUKOCYTOSIS RASH D/T ALLERGIC DRUG REACTION T 97.4 HR 81 RR 20 B/P 146/86 SATS 96% ON RA CL 108 BUN 40 CR 1.8 IS: PREDNISONE 30MG PO QD DOXYCYCLINE PO Q12 NORVASC PO QD IVF@100/HR IV BENADRYL Q6 PEPCID PO BID ABREVA 5X'S PER DAY : MED/SURG STATUS 3 EAST DCP: FROM HOME
[2018-10-18 15:12] LABS: APPEARANCE,URINE CLEAR; BILIRUBIN, URINE NEGATIVE (NEGATIVE); COLOR,URINE PALE YELLOW; GLUCOSE, URINE (UA) NEGATIVE (NEGATIVE); KETONES,URINE NEGATIVE (NEGATIVE); LEUKOCYTE ESTERASE ,URINE NEGATIVE (NEGATIVE); NITRITE,URINE NEGATIVE (NEGATIVE); PH,URINE 5 (4.5-8.0); PROTEIN,URINE NEGATIVE (NEGATIVE); UROBILINOGEN,URINE NORMAL MG/DL (0.0-1.0)
[2018-10-18 16:00] VITALS: BP 110/70
--- NOTE | 2018-10-18 19:00 | NUR ---
NURSE NOTES: QUIET IN BED. IN NO APPARENT DISTRESS.
--- NOTE | 2018-10-18 19:20 | NUR ---
NURSE NOTES: Received report from HOLLY Acosta and rounds made. Received pt sitting up in bed, AOX4, denies any pain, no SOB noted. IV L wrist patent and intact. IV fluid infusing as ordered. Bed in lowest position and locked, side rails up x 2, call light within reach.
--- NOTE | 2018-10-18 19:29 | NUR ---
HAND-OFF: Report given to El EDUARDO RN.
--- NOTE | 2018-10-18 19:34 | NUR ---
NURSE NOTES: BUN 40. CALLED TO DR SHORT NO NEW ORDER. JUST CONTINUE SAME IVF.
[2018-10-18 20:00] VITALS: BP 141/90
[2018-10-19] MEDS: DiphenhydrAMINE 50mg/ml Inj IVP SCH ×4 (02:36→20:39)
[2018-10-19 06:00] VITALS: BP 133/78
[2018-10-19] MEDS: Abreva 10% cream 2gm TP SCH ×5 (06:30→18:43)
--- NOTE | 2018-10-19 06:50 | General Progress Note ---
Assessment/Plan Problem List: (1) Morbid obesity ICD Codes: E66.01 - Morbid (severe) obesity due to excess calories SNOMED: 721205744 (2) Tachycardia ICD Codes: R00.0 - Tachycardia, unspecified; R65.20 - Severe sepsis without septic shock SNOMED: 9033732 (3) Cellulitis, leg ICD Codes: L03.119 - Cellulitis of unspecified part of limb SNOMED: 614152856 (4) Severe sepsis ICD Codes: A41.9 - Sepsis, unspecified organism; R65.20 - Severe sepsis without septic shock SNOMED: 90563115 Status: stable Assessment/Plan: ivf follow up labs po abx dc planning if labs ok Subjective ROS Limited/Unobtainable: No Constitutional: Reports: no symptoms HEENT: Reports: no symptoms Cardiovascular: Reports: edema Respiratory: Reports: no symptoms Gastrointestinal/Abdominal: Reports: no symptoms Genitourinary: Reports: no symptoms Neurologic/Psychiatric: Reports: no symptoms Endocrine: Reports: no symptoms Hematologic/Lymphatic: Reports: no symptoms Allergies: Coded Allergies: No Known Allergies (Unverified , 10/05/18) All Systems: reviewed and negative except above Subjective rash decreasing. renal fxn pending for today. no discharged yesterday as not improved Objective Last 24 Hour Vital Signs Date Time Temp Pulse Resp B/P (MAP) Pulse Ox O2 Delivery O2 Flow Rate FiO2 10/19/18 06:00 98.1 88 18 133/78 (96) 98 10/18/18 21:00 Room Air 10/18/18 20:00 97.5 81 18 141/90 (107) 94 10/18/18 16:00 97.2 89 20 110/70 (83) 94 10/18/18 12:00 97.4 81 20 146/86 (106) 96 10/18/18 09:16 Room Air 10/18/18 08:35 79 138/86 10/18/18 08:00 97.2 79 18 138/86 (103) 96 Intake and Output 10/18/18 10/19/18 19:00 07:00 Intake Total 2000 ml 1480 ml Output Total 2950 ml 800 ml Balance -950 ml 680 ml Intake Oral 800 ml 480 ml IV Total 1200 ml 1000 ml Output Urine Total 2950 ml 800 ml # Voids 3 # Bowel Movements 1 1 Laboratory Tests 10/18/18 08:30: Sodium Level 142, Potassium Level 4.4, Chloride Level 108H, Carbon Dioxide Level 26, Anion Gap 8, Blood Urea Nitrogen 40H, Creatinine 1.8H, Estimat Glomerular Filtration Rate 43.7, Glucose Level 92, Calcium Level 9.0 10/18/18 13:05: Urine Color Pale yellow, Urine Appearance Clear, Urine pH 5, Urine Specific [place] 1.010, Urine Protein Negative, Urine Glucose (UA) Negative, Urine Ketones Negative, Urine Blood Negative, Urine Nitrite Negative, Urine Bilirubin Negative, Urine Urobilinogen Normal, Urine Leukocyte Esterase Negative, Urine RBC 0-2H, Urine WBC 0-2, Urine Squamous Epithelial Cells Occasional, Urine Bacteria Few Height (Feet): 6 Height (Inches): 2.00 Weight (Pounds): 469 Objective General Appearance: WD/WN, alert Neck: supple Cardiovascular: regular rhythm Respiratory/Chest: normal breath sounds Abdomen: normal bowel sounds, non tender, soft, no organomegaly Edema: 3+ Leg (L), 3+ Leg (R) Skin: rash- diffuse but less Stephon Rainey MD Oct 19, 2018 06:50
--- NOTE | 2018-10-19 07:14 | NUR ---
HAND-OFF: Report given to HOLLY Russell. Pt in stable condition.
--- NOTE | 2018-10-19 07:29 | NUR ---
NURSE NOTES: Received report from Michel Bernstein RN. Rounding done with outgoing nurse. Pt a/o x4, in bed. Denies pain at this time. Left leg is edematous. Left wrist IV line is patent. Bed in lowest position, call light within reach. Will continue to monitor.
[2018-10-19 08:00] VITALS: BP 158/88
[2018-10-19] MEDS: Heparin 5000 units/ml inj SUBQ SCH ×2 (08:39→20:49)
[2018-10-19 09:46] LABS: HEMATOCRIT 40.8 % (42.0-52.0); MEAN CORPUSCULAR VOLUME 90 FL (80-99); PLATELET COUNT 553 K/UL (150-450); RED BLOOD COUNT 4.53 M/UL (4.70-6.10); RED CELL DISTRIBUTION WIDTH 14.3 % (11.6-14.8); WHITE BLOOD COUNT 17.3 K/UL (4.8-10.8)
[2018-10-19 10:29] LABS: ANION GAP 9 mmol/L (5-15); BLOOD UREA NITROGEN 44 mg/dL (7-18); CALCIUM 8.8 MG/DL (8.5-10.1); CARBON DIOXIDE 27 MMOL/L (21-32); CHLORIDE 103 MMOL/L (98-107); CREATININE 1.7 MG/DL (0.55-1.30); POTASSIUM 4.2 MMOL/L (3.5-5.1); SODIUM 139 MMOL/L (136-145)
[2018-10-19 12:00] VITALS: BP 151/84
[2018-10-19 16:00] VITALS: BP 127/80
--- NOTE | 2018-10-19 19:00 | NUR ---
HAND-OFF: Report given to Michel Bernstein RN.
--- NOTE | 2018-10-19 19:17 | NUR ---
NURSE NOTES: BUN 44 today. Left the message to Dr. Rainey.
--- NOTE | 2018-10-19 19:30 | NUR ---
NURSE NOTES: Received report from HOLLY Russell and rounds made with outgoing nurse. Received pt sitting up in bed, eating, AOX4, denies any pain, no distress noted. IV R hand patent and intact. IV fluid infusing as ordered. Left leg edematous. Bed in lowest position and locked, side rails up x 2, call light within reach. Will continue to monitor.
[2018-10-19 20:00] VITALS: BP 138/66
[2018-10-20] MEDS: DiphenhydrAMINE 50mg/ml Inj IVP SCH ×4 (02:30→20:14)
[2018-10-20 05:59] VITALS: BP 133/73
[2018-10-20] MEDS: Abreva 10% cream 2gm TP SCH ×5 (06:17→19:00)
--- NOTE | 2018-10-20 07:08 | NUR ---
HAND-OFF: Report given to HOLLY Russell. Pt in stable condition.
--- NOTE | 2018-10-20 07:09 | NUR ---
HAND-OFF: Report given to HOLLY Russell. Pt in stable condition.
--- NOTE | 2018-10-20 07:11 | NUR ---
NURSE NOTES: Received report from HOLLY Pearson. Pt a/o x4, in bed. No c/o pain, IV is patent. Will continue to monitor.
[2018-10-20 08:00] VITALS: BP 136/78
--- NOTE | 2018-10-20 08:13 | General Progress Note ---
Assessment/Plan Problem List: (1) Morbid obesity ICD Codes: E66.01 - Morbid (severe) obesity due to excess calories SNOMED: 504871773 (2) Tachycardia ICD Codes: R00.0 - Tachycardia, unspecified; R65.20 - Severe sepsis without septic shock SNOMED: 6874072 (3) Cellulitis, leg ICD Codes: L03.119 - Cellulitis of unspecified part of limb SNOMED: 692089864 (4) Severe sepsis ICD Codes: A41.9 - Sepsis, unspecified organism; R65.20 - Severe sepsis without septic shock SNOMED: 65199700 Status: stable Assessment/Plan: ivf follow up labs renal eval po abx dc planning if labs ok Subjective ROS Limited/Unobtainable: No Constitutional: Reports: no symptoms Cardiovascular: Reports: no symptoms Respiratory: Reports: no symptoms Gastrointestinal/Abdominal: Reports: no symptoms Genitourinary: Reports: no symptoms Neurologic/Psychiatric: Reports: no symptoms Endocrine: Reports: no symptoms Hematologic/Lymphatic: Reports: no symptoms Allergies: Coded Allergies: CLINDAMYCIN (Verified Allergy, Severe, Rash, 10/19/18) PIPERACILLIN (Verified Allergy, Severe, Rash, 10/19/18) TAZOBACTAM (Verified Allergy, Severe, Rash, 10/19/18) VANCOMYCIN (Verified Allergy, Severe, Rash, 10/19/18) All Systems: reviewed and negative except above Subjective rash mostly better. on ivf. on po abx. renal us- no hydro. labs pending for today Objective Last 24 Hour Vital Signs Date Time Temp Pulse Resp B/P (MAP) Pulse Ox O2 Delivery O2 Flow Rate FiO2 10/20/18 08:00 98.1 95 20 136/78 (97) 96 10/20/18 05:59 98.2 93 17 133/73 (93) 97 10/19/18 21:00 Room Air 10/19/18 20:00 98.1 96 17 138/66 (90) 98 10/19/18 16:00 97.4 91 20 127/80 (96) 97 10/19/18 12:00 97.4 89 18 151/84 (106) 99 10/19/18 09:00 Room Air Intake and Output 10/19/18 10/20/18 19:00 07:00 Intake Total 1100 ml 1580 ml Balance 1100 ml 1580 ml Intake Oral 400 ml 480 ml IV Total 700 ml 1100 ml # Voids 3 6 Laboratory Tests 10/19/18 08:50: White Blood Count 17.3H, Red Blood Count 4.53L, Hemoglobin 13.0L, Hematocrit 40.8L, Mean Corpuscular Volume 90, Mean Corpuscular Hemoglobin 28.7, Mean Corpuscular Hemoglobin Concent 31.9L, Red Cell Distribution Width 14.3, Platelet Count 553H, Mean Platelet Volume 5.7L, Neutrophils (%) (Auto) , Lymphocytes (%) (Auto) , Monocytes (%) (Auto) , Eosinophils (%) (Auto) , Basophils (%) (Auto) , Differential Total Cells Counted 100, Neutrophils % ( Manual) 60, Lymphocytes % (Manual) 27, Monocytes % (Manual) 12H, Eosinophils % ( Manual) 1, Basophils % (Manual) 0, Band Neutrophils 0, Platelet Estimate IncreasedH, Platelet Morphology Normal, Anisocytosis 1+, Sodium Level 139, Potassium Level 4.2, Chloride Level 103, Carbon Dioxide Level 27, Anion Gap 9, Blood Urea Nitrogen 44H, Creatinine 1.7H, Estimat Glomerular Filtration Rate 46.6, Glucose Level 80, Calcium Level 8.8 10/20/18 06:38: Sodium Level [Pending], Potassium Level [Pending], Chloride Level [Pending], Carbon Dioxide Level [Pending], Blood Urea Nitrogen [Pending], Creatinine [ Pending], Estimat Glomerular Filtration Rate [Pending], Glucose Level [Pending] , Calcium Level [Pending] Height (Feet): 6 Height (Inches): 2.00 Weight (Pounds): 469 Objective General Appearance: WD/WN, alert Neck: supple Cardiovascular: regular rhythm Respiratory/Chest: normal breath sounds Abdomen: normal bowel sounds, non tender, soft, no organomegaly Edema: 3+ Leg (L), 3+ Leg (R) Skin: rash- diffuse but less Stephon Rainey MD Oct 20, 2018 08:13
[2018-10-20 08:16] LABS: ANION GAP 7 mmol/L (5-15); BLOOD UREA NITROGEN 39 mg/dL (7-18); CARBON DIOXIDE 29 MMOL/L (21-32); CHLORIDE 101 MMOL/L (98-107); CREATININE 1.7 MG/DL (0.55-1.30); SODIUM 137 MMOL/L (136-145)
--- NOTE | 2018-10-20 08:24 | NUR ---
NURSE NOTES: BUN 39, Cr 1.[address] Rainey was notified.
[2018-10-20] MEDS: Heparin 5000 units/ml inj SUBQ SCH ×2 (09:12→20:17)
--- NOTE | 2018-10-20 11:10 | Infectious Diseases Prog Note ---
Assessment/Plan Assessment/Plan antibiotics ; doxycycline A 1. left leg cellulitis improving 2. leucocytosis improving ? secondary to steroids 3. obesity 4. allergic reaction resolved 5. renal failure P 1. continue po doxycycline 5 more days 2. will follow up cultures Subjective ROS Limited/Unobtainable: Yes Allergies: Coded Allergies: CLINDAMYCIN (Verified Allergy, Severe, Rash, 10/19/18) PIPERACILLIN (Verified Allergy, Severe, Rash, 10/19/18) TAZOBACTAM (Verified Allergy, Severe, Rash, 10/19/18) VANCOMYCIN (Verified Allergy, Severe, Rash, 10/19/18) Objective Vital Signs Last 24 Hour Vital Signs Date Time Temp Pulse Resp B/P (MAP) Pulse Ox O2 Delivery O2 Flow Rate FiO2 10/20/18 09:00 Room Air 10/20/18 08:00 98.1 95 20 136/78 (97) 96 10/20/18 05:59 98.2 93 17 133/73 (93) 97 10/19/18 21:00 Room Air 10/19/18 20:00 98.1 96 17 138/66 (90) 98 10/19/18 16:00 97.4 91 20 127/80 (96) 97 10/19/18 12:00 97.4 89 18 151/84 (106) 99 Height (Feet): 6 Height (Inches): 2.00 Weight (Pounds): 469 Respiratory/Chest: lungs clear Cardiovascular: normal rate, regular rhythm, no gallop/murmur Abdomen: soft, non tender Extremities: other - decreased edema, left leg erythema decreased Laboratory Tests Test 10/20/18 06:38 Sodium Level 137 MMOL/L (136-145) Potassium Level 4.0 MMOL/L (3.5-5.1) Chloride Level 101 MMOL/L (98-107) Carbon Dioxide Level 29 MMOL/L (21-32) Anion Gap 7 mmol/L (5-15) Blood Urea Nitrogen 39 mg/dL (7-18) H Creatinine 1.7 MG/DL (0.55-1.30) H Estimat Glomerular Filtration Rate 46.6 mL/min (>60) Glucose Level 90 MG/DL (74-106) Calcium Level 9.0 MG/DL (8.5-10.1) Current Medications Medications (Trade) Dose Ordered Sig/Jeffy Route PRN Reason Start Time Stop Time Status Last Admin Dose Admin Acetaminophen (Tylenol) 650 mg Q4H PRN ORAL Mild Pain/Temp > 100.5 10/09/18 06:56 11/04/18 06:55 Diphenhydramine HCl (Benadryl) 50 mg Q6H IVP 10/14/18 14:30 11/13/18 14:29 10/20/18 09:10 Docosanol (Abreva) 1 gm FIVE TIMES A DAY TP 10/13/18 07:00 11/12/18 06:59 10/20/18 09:11 Doxycycline Monohydrate (Doxycycline Monohydrate) 100 mg EVERY 12 HOURS ORAL 10/15/18 12:00 10/22/18 11:59 10/20/18 09:10 Guaifenesin/ Dextromethorphan (Robitussin DM Syrup) 10 ml Q4H PRN ORAL For Cough 10/09/18 06:56 11/05/18 06:55 10/12/18 15:40 Heparin Sodium (Porcine) (Heparin 5000 units/ml) 5,000 units EVERY 12 HOURS SUBQ 10/09/18 09:00 11/05/18 08:59 10/20/18 09:12 Ondansetron HCl (Zofran) 4 mg Q6H PRN IVP Nausea & Vomiting 10/09/18 06:57 11/04/18 06:56 Promethazine HCl/ Codeine (Phenergan with Codeine) 5 ml Q4H PRN ORAL For Cough 10/09/18 07:00 11/06/18 14:59 Sodium Chloride 1,000 ml @ 100 mls/hr Q10H IV 10/16/18 19:30 11/15/18 19:29 10/20/18 09:12 Bradford Plata MD Oct 20, 2018 11:10
[2018-10-20 12:00] VITALS: BP 117/73
--- NOTE | 2018-10-20 14:04 | NUR ---
CASE MANAGEMENT:REVIEW 10/19/18 SI: SEPSIS. LLE CELLULITIS. LEUKOCYTOSIS RASH D/T ALLERGIC DRUG REACTION 97.5 78 20 159/102 95% ON RA WBC+17.3 B7N+44 CR+1.7 IS:DOXYCYCLINE PO Q12 IVF@100/HR IV BENADRYL Q6 PEPCID PO BID ABREVA 5X'S PER DAY : MED/SURG STATUS 3 EAST DCP: FROM HOME 10/20/18 SI: SEPSIS. LLE CELLULITIS. LEUKOCYTOSIS RASH D/T ALLERGIC DRUG REACTION 98.1 95 20 136/78 96% ON RA IS: DOXYCYCLINE PO Q12 IVF@100/HR IV BENADRYL Q6 PEPCID PO BID ABREVA 5X'S PER DAY : MED/SURG STATUS 3 EAST DCP: FROM HOME
[2018-10-20 16:00] VITALS: BP 136/78
[2018-10-20 18:57] LABS: APPEARANCE,URINE CLEAR; BILIRUBIN, URINE NEGATIVE (NEGATIVE); COLOR,URINE PALE YELLOW; GLUCOSE, URINE (UA) NEGATIVE (NEGATIVE); KETONES,URINE NEGATIVE (NEGATIVE); LEUKOCYTE ESTERASE ,URINE 1+ (NEGATIVE); NITRITE,URINE NEGATIVE (NEGATIVE); PH,URINE 6 (4.5-8.0); PROTEIN,URINE NEGATIVE (NEGATIVE); UROBILINOGEN,URINE NORMAL MG/DL (0.0-1.0)
--- NOTE | 2018-10-20 19:47 | NUR ---
HAND-OFF: Report given to HOLLY Davis.
[2018-10-20 20:00] VITALS: BP 134/82
--- NOTE | 2018-10-20 20:00 | NUR ---
NURSE NOTES: Receive a report from HOLLY Russell. Done rounds. IV N/S 75ml/hr hydration via right hand without infiltration. No pain noted on right leg. Will continue to monitor. Addendum: 10/21/18 at 0041 by Sebastian Granda RN CORRECTION: IV NS from 70ml/hr to 100ml/hr
--- NOTE | 2018-10-20 21:00 | NUR ---
NURSE NOTES: Pt is awake and alert. No pain or bloating sense noted. BS intact 4 quadrants. Pt demonstrates self-intubating to Ileostomy with NS 60ml 3x irrigation. Pure output is 195ml greenish color. Op site clear with sutures on. After irrigation, apply 4x4 gauze and paper tape. Will continue to monitor. Addendum: 10/21/18 at 0040 by Sebastian Granda RN CORRECTION DOCUMENTATION d/t INCORRECT PATIENT
[2018-10-21] VITALS: BP 130/78
--- NOTE | 2018-10-21 01:00 | Consultation ---
DATE OF CONSULTATION: 10/20/2018 NEPHROLOGY CONSULTATION CONSULTING PHYSICIAN: Adrian Rascon M.D. REFERRING PHYSICIAN: Stephon Rainey M.D. REASON FOR CONSULTATION: Acute kidney injury. HISTORY OF PRESENT ILLNESS: The patient has been hospitalized since approximately 10/05/2018 when he presented with fever and cellulitis of the left leg. He received Zosyn and vancomycin initially. His creatinine has ranged from 1.0 to 2.0 during this admission and currently is 1.7 with a BUN of 39 and his creatinine has not improved since 10/16/2018 to 10/20/2018 as stated at 1.7 despite intravenous hydration. He also has morbid obesity and a low serum albumin range of 2.4 to 2.6. CPK has been normal. The patient is voiding without problems and cellulitis improving. Renal ultrasound showed normal kidneys. His initial urinalysis was abnormal with 3+ protein, 2+ ketones, 1+ blood, 2 to 4 red cells, and 0 to 2 white cells per high-power field. Repeat urinalysis was negative. He has had no other significant medical history. CURRENT MEDICATIONS: Reviewed on the computer include Tylenol, diphenhydramine, Abreva, doxycycline, guaifenesin, subcutaneous heparin, ondansetron, and promethazine. ALLERGIES: Clindamycin, piperacillin, tazobactam, and vancomycin. It is not clear if he is still allergic. SYSTEM REVIEW: HEAD, EYES, EARS, NOSE, AND THROAT: Vision and hearing is good. ENDOCRINE: History of morbid obesity. No known diabetes or thyroid disease. PULMONARY: No shortness of breath or chronic cough or TB. CARDIAC: No history of VT or palpitations. GASTROINTESTINAL: No nausea, vomiting, or abdominal pain. GENITOURINARY: No history of voiding problems, hematuria, or dysuria. MUSCULOSKELETAL: No inflammatory joints. PHYSICAL EXAMINATION: GENERAL: The patient is alert, morbidly obese man, in no acute distress. VITAL SIGNS: Temperature 97.6, pulse 79, respirations 18, and blood pressure 117/73. HEENT: Sclerae are nonicteric. Ocular motions intact in all directions. Oral mucosa is moist. NECK: No adenopathy or thyroid enlargement. LUNGS: Clear. HEART: Regular rhythm. No murmur. ABDOMEN: Soft without organomegaly or masses. EXTREMITIES: No edema, cyanosis, or clubbing. There is a healing cellulitis in the left leg. NEUROLOGIC: He is alert and oriented. Cranial nerves are intact. IMPRESSION: The patient's creatinine is 1.7. It shows a mild renal insufficiency, but in view of his morbid obesity, renal function is not bad because of his acute kidney injury and could be due to side effects of antibiotics either interstitial nephritis or nephrotoxicity. He does have one abnormal urinalysis and this should be repeated and he has a low serum albumin likely related to morbid obesity. The patients in this situation can sometimes get focal segmental glomerulosclerosis and develop chronic kidney disease from the above. PLAN: At this time, he is off the IV antibiotics. I will check the urinalysis and a urine microalbumin, repeat his serum chemistries, and follow up in the outpatient setting. We are going to also check his CPK and uric acid, although initial CPK was normal. I would like to thank Dr. Rainey for this consultation. Adrian Rascon M.D. DR: [place] JOB#: [id number] CC:
[2018-10-21] MEDS: DiphenhydrAMINE 50mg/ml Inj IVP SCH ×3 (02:48→14:51)
[2018-10-21 04:00] VITALS: BP 138/82
[2018-10-21] MEDS: Abreva 10% cream 2gm TP SCH ×3 (06:08→12:24)
[2018-10-21 07:05] LABS: CREATINE KINASE 12 U/L (26-308)
[2018-10-21 07:11] LABS: ANION GAP 8 mmol/L (5-15); BLOOD UREA NITROGEN 38 mg/dL (7-18); CALCIUM 8.9 MG/DL (8.5-10.1); CARBON DIOXIDE 28 MMOL/L (21-32); CHLORIDE 100 MMOL/L (98-107); POTASSIUM 4.4 MMOL/L (3.5-5.1); SODIUM 136 MMOL/L (136-145)
[2018-10-21 07:41] LABS: CREATININE 1.8 MG/DL (0.55-1.30)
--- NOTE | 2018-10-21 07:46 | NUR ---
NURSE NOTES: Patient is in bed awake and able to verbalize needs. Patient stable. Denies pain or SOB. Patient encouraged to use call light for assistance, verbalized understanding. Patient is in good spirits in locked and lowest position with call light within reach. Will continue to monitor.
--- NOTE | 2018-10-21 07:46 | NUR ---
HAND-OFF: Report given to HOLLY Brantley.
[2018-10-21 08:00] VITALS: BP 114/68
[2018-10-21] MEDS: Heparin 5000 units/ml inj SUBQ SCH (09:02)
[2018-10-21 11:25] VITALS: BP 124/73
[2018-10-21 11:26] VITALS: BP 124/73
[2018-10-21 13:16] LABS: BASOPHILS % (AUTO) 0.6 % (0.0-2.0); EOSINOPHILS % (AUTO) 3.5 % (0.0-3.0); HEMATOCRIT 40.4 % (42.0-52.0); HEMOGLOBIN 12.7 G/DL (14.2-18.0); LYMPHOCYTES % (AUTO) 21.1 % (20.0-45.0); MEAN CORPUSCULAR VOLUME 90 FL (80-99); MONOCYTES % (AUTO) 3.8 % (1.0-10.0); PLATELET COUNT 473 K/UL (150-450); RED BLOOD COUNT 4.49 M/UL (4.70-6.10); RED CELL DISTRIBUTION WIDTH 14.9 % (11.6-14.8); WHITE BLOOD COUNT 16.3 K/UL (4.8-10.8)
--- NOTE | 2018-10-21 13:45 | NUR ---
CASE MANAGEMENT:REVIEW 10/21/18 SI: SEPSIS. LLE CELLULITIS. LEUKOCYTOSIS RASH D/T ALLERGIC DRUG REACTION 97.6 96 21 124/73 96% ON RA WBC+16.3 BUN+38 CR+1.8 IS: DOXYCYCLINE PO Q12 IVF@100/HR IV BENADRYL Q6 PEPCID PO BID ABREVA 5X'S PER DAY : MED/SURG STATUS 3 EAST DCP: FROM HOME
[2018-10-21 16:04] VITALS: BP 120/70
--- NOTE | 2018-10-21 16:15 | NUR ---
NURSE NOTES: Patient discharged home as ordered. Patient is stable. Denies pain or SOB. Patient was given thorough discharge instructions by RN, patient verbalized understanding. Patient has all belongings. Patient has prescription from Dr. Rainey. Patient verbalized that he will get the prescription filled. Patient has no IV access. Patient assisted into uber by RN without incident. Skin is clean, dry, and intact. Cellulitis noted to be improving by Dr. Rainey. Patient verbalized that he will follow up with .
--- NOTE | 2018-10-22 11:38 | Discharge Summary ---
Discharge Summary Discharge Summary _ DATE OF ADMISSION: 10/05/2018 DATE OF DISCHARGE: 01/21/2019 DISCHARGED BY: Dr. Rainey REASON FOR ADMISSION: 33 years old male with prior history of recurrent cellulitis, morbid obesity, presented with complaint of cough, congestion and left leg pain. According to patient, he had upper respiratory infection symptoms about a week ago. On the day of admission his left leg was red, painful , warm and swollen. Upon evaluation in the emergency department patient was tachycardic with heart rate 140, tachypneic with respiratory rate 22 , blood pressure was stable , and pulse oximetry was 98% on room air. Afebrile. Laboratory work-up revealed BUN 14, creatinine 1.4. Stable electrolytes. Magnesium 1.5. Phosphorus 1.3. Stable LFT. Troponin negative. WBC 18, hemoglobin 14, hematocrit 43, platelet count 452. Lactic acid 2.1. Patient was admitted for further management. CONSULTANTS: ID specialist Dr. Plata plodding machine operator Dr. Rascon HOSPITAL COURSE: Patient admitted to medical surgical floor. Patient started on broad-spectrum antibiotic. Infectious disease specialist closely followed. Arterial duplex of bilateral legs revealed no evidence of significant arterial occlusive disease bilaterally. Ultrasound of the left lower extremity revealed no loculated fluid or abscess. Diffuse subcutaneous soft tissue edema throughout the anterior aspect of the lower extremity. Infectious disease specialist followed. Blood culture were negative. Urine culture revealed mixed gram-positive organism. Antibiotics provided for cellulitis as per infectious disease specialist recommendation. Patient developed severe rash with hives likely due to allergic drug reaction. Vancomycin and Zosyn stopped. Patient started on oral doxycycline. Patient will need to complete additional 5 days of doxycycline upon discharge as per infectious disease specialist recommendation. Patient received a short course of steroids, IV Benadryl and H2 joo for allergic drug reaction. Rash improved. Patient was on Abreva for herpes simplex of lips. Leukocytosis was improving ,no fevers Leukocytosis possibly was secondary to steroids. Chest x-ray revealed no acute cardiopulmonary pathology. Antitussive provided as needed. Pulse oximetry stable on room air. Tachycardia resolved. Creatinine was trending up, highest-2.0, after patient developed rash, likely due to allergic drug reaction. Patient developed acute kidney injury. Renal ultrasound revealed fatty liver. Normal bilateral kidney echogenicity. No obvious hydronephrosis. Silk Hanger seen and evaluated patient. Renal parameters and electrolytes were closely monitored. Electrolytes further corrected as needed. Nephrotoxins were avoided. Last creatinine 1.7, consistent with mild renal insufficiency. Per plodding machine operator, acute kidney injury could be due to side effect of antibiotic , either interstitial nephritis or nephrotoxicity. Initial urinalysis revealed +3 proteinuria. Repeated urinalysis revealed no evidence of protein. Low albumin was likely related to morbid obesity. Patient will need to follow-up with plodding machine operator in outpatient setting. Blood pressure was managed with calcium channel joo. DVT and GI prophylaxis provided. Supportive care provided. Patient clinically stabilized and was ready for discharge home. FINAL DIAGNOSES: Severe sepsis Left leg cellulitis- improving Leukocytosis - improving , possibly secondary to steroids Tachycardia Allergic drug reaction , likely due to antibiotic Herpes simplex of lip Seborrheic dermatitis Morbid obesity Acute kidney injury DISCHARGE MEDICATIONS: See Medication Reconciliation list. DISCHARGE INSTRUCTIONS: Patient was discharged home. Follow up with primary care provider in one week. I have been assigned to dictate discharge summary for this account. I was not involved in the patient's management. Sheila Ortez NP Oct 22, 2018 11:38
== END 2018-10-21 16:45 | disposition home or self-care (01) | DRG 720 ==
LOC: EDBD 20:08 → EMR 20:25 → EDBEDREQ 21:15 → 2W 21:16 → EDBEDREQ 22:10 → 3E 10-09 06:43 → SDSOVERFLO 10-13 11:31 → 3E 10-13 11:32
DX: A41.9 Sepsis, unspecified organism (principal); E87.2 Acidosis; N17.9 Acute kidney failure, unspecified; E66.01 Morbid (severe) obesity due to excess calories; L03.116 Cellulitis of left lower limb; Z68.44 Body mass index [BMI] 60.0-69.9, adult; B00.1 Herpesviral vesicular dermatitis; R65.20 Severe sepsis without septic shock; R00.0 Tachycardia, unspecified; L27.0 Generalized skin eruption due to drugs and medicaments taken internally; T36.8X5A Adverse effect of other systemic antibiotics, initial encounter; Y92.230 Patient room in hospital as the place of occurrence of the external cause
CPT/HCPCS: 36415; 36600; 71045; 76770; 80048; 80053; 80202; 81001; 81003; 82043; 82550; 82553; 82803; 83605; 83735; 84100; 84484; 84550; 85007; 85025; 87040; 87086; 93005; 93925; 96365; 96366; 96367; 96368; 96375; 99285; C9399; J2405; S0077